=== PATIENT | female | born 1945 | race Caucasian/White ===

== ENCOUNTER 2018-03-30 01:58 | Inpatient (IN) ==
[2018-03-30] MEDS ORDERED: Ondansetron 4 MG/2 ML VIAL IVP ONE ×2 (05:56→15:33)
[2018-03-30] MEDS ORDERED: OXYCODONE Oral CONC 10 MG/0.5 ML ORAL.SYG SL PRN ×2 (08:27→17:45)
[2018-03-30] MEDS ORDERED: Naloxone 0.4 MG/ML INJ IVP PRN ×3 (08:27→17:45)
[2018-03-30] MEDS ORDERED: Ondansetron 4 MG/2 ML VIAL IVP PRN (08:27)
--- NOTE | 2018-03-30 08:29 | Orthopedic Consult Note ---
Date of Encounter: 03/30/18 Time of Encounter: 08:27 History of Present Illness HPI: Ms. Hall is a 72 year old female Patient seen this morning history of multiple medical issues no significant status post lower lobe lobectomy. Patient with a injury to the right hip. Patient seen and [facility] ER transferred for treatment. Physical exam Patient resting comfortably Right lower extremity Decreased motion secondary to pain Neurovascular intact X-ray and CT show nondisplaced femoral neck fracture, recommendation would be right hip pinning. Patient will require anesthetic clearance. Past Med Surg Social Fam HX - Past Medical History Medical history: arthritis, asthma, COPD, GERD, glaucoma, hyperlipidemia, hypertension, osteoporosis, thyroid disease, TIA Psychiatric history: no psych history, anxiety, depression, panic disorder - Past Surgical History Additional surgical history: thyroid lobectomy, breast lumpectomy - Social History Smoking Status: Former smoker Smokeless Tobacco Status: No Alcohol use: none Drug use: none - Family History Daughter Adopted: [place]: Niya Family Member Ethnicity: Non- Living Status: Still Living Hx Family Cardiac Disorders: Yes (HTN) Hx Family Respiratory Disorders: Yes Hx Family Cancer: No Hx Family GI Disorders: Yes (GERD) Hx Family Endocrine Disorder: Yes (DM) Hx Family Neuromuscular Disorders: No Hx Family Neurologic Disorders: Yes (Narcolepsy) Hx Family HEENT Disorders: Yes (Glases) Hx Family Autoimmune Disorders: No Medications and Allergies Albuterol Sulfate [Proair Hfa] 1 aerosol IH Q4H PRN 09/19/15 [History] Aspirin 81 mg PO DAILY 09/19/15 [History] Atorvastatin [Lipitor] 10 mg PO HS 09/19/15 [History] Budesonide/Formoterol 160/4.5 [Symbicort 160/4.5] 1 puff IH BIDR 09/19/15 [History] Calcium Carbonate/Vitamin D3 [Oyster Shell Calcium + D Cplt] 2 tab PO BID 0 09/19/15 [History] FLUoxetine HCl [PROzac] 20 mg PO DAILY 09/19/15 [History] Ipratropium/Albuterol Neb [Duoneb] 3 ml IH Q4HR PRN 09/19/15 [History] Ipratropium/Albuterol Sulfate [Combivent Respimat Inhal [place]] 4 gm IH Q4H PRN 09/19/15 [History] Montelukast [Singulair] 10 mg PO HS 09/19/15 [History] Multivitamin with Minerals [Totalday Multiple] 1 tab PO DAILY 09/19/15 [History] Nabumetone 750 mg PO BID PRN 09/19/15 [History] Naproxen [Naprosyn] 500 mg PO BID PRN 09/19/15 [History] Omeprazole [PriLOSEC] 20 mg PO DAILY 09/19/15 [History] Ondansetron [Zuplenz] 4 mg PO Q6H PRN 09/19/15 [History] Oxygen 3.5 l IH CONT 09/19/15 [History] Saliva Stimulant [Biotene Moisturizing Rinse] 100 spray ORAL RINSE Q4H PRN 09/19/15 [History] Theophylline Anhydrous [Theodur] 200 mg PO DAILY 09/19/15 [History] Allergy/AdvReac Type Severity Reaction Status Date / Time bupropion [From Wellbutrin] Allergy Hives Verified 08/28/15 14:44 codeine Allergy Nausea Verified 11/30/14 09:08 Opioids - Morphine Analogues Allergy Nausea Verified 08/28/15 14:45 All Systems Reviewed: The remainder of the systems were reviewed and are negative Physical Exam - Constitutional Vitals: Temp Pulse Resp BP Pulse Ox 98.5 F 115 18 106/65 94 03/30/18 07:07 03/30/18 08:06 03/30/18 08:06 03/30/18 07:07 03/30/18 08:06 Results - Labs Labs: All other labs normal. Consult Discharge Plan - Plan Referrals: nAnie Elliott MD [Primary Care Provider] -
[2018-03-30] MEDS ORDERED: D5% in 0.45% NACL 1,000 ML IVC SCH (08:30)
[2018-03-30] MEDS ORDERED: Ketorolac 15 MG/ML VIAL IVP PRN (08:31)
[2018-03-30] MEDS ORDERED: Ipratropium/Albuterol Neb 3 ML IH PRN ×2 (08:34→17:45)
--- NOTE | 2018-03-30 08:46 | Internal Med History&Physical ---
Date of Encounter: 03/30/18 Time of Encounter: 07:30 Internal Medicine - H&P: HPI Chief complaint: Right hip pain Admitted From: Home Plans for Post Hospital Care: Home History of present illness: Ms. Hall is a 72 year old female present to [facility] emergency room for right hip pain after fall. Past medical history is significant for history of CVA, COPD, hyperlipidemia, hypertension, hyperthyroidism S/P thyroid nodule removal. Patient has COPD and on home oxygen all the time at 3.5 L. Patient was trapped by oxygen tube and fell at around 8pm yesterday. Denies loss of consciousness or head injury. Patient has right hip pain. Patient was sent to [facility] emergency room and was found right femoral neck fracture. Orthopedic consult of our hospital was called and patient was transferred to our hospital for further management. Patient denies chest pain. Patient has chronic shortness of breath which is about the same with her baseline. Patient also has baseline tachycardia with heart rate at 104-110 level at home. Patient has mild desaturation in [facility] emergency room, probably due to pain medication use. Past Med Surg Social Fam HX - Past Medical History Medical history: arthritis, asthma, COPD, GERD, glaucoma, hyperlipidemia, hypertension, osteoporosis, thyroid disease, TIA Psychiatric history: no psych history, anxiety, depression, panic disorder - Past Surgical History Additional surgical history: thyroid lobectomy, breast lumpectomy - Social History Smoking Status: Former smoker Smokeless Tobacco Status: No Alcohol use: none Drug use: none - Family History Daughter Adopted: [place]: Niya Family Member Ethnicity: Non- Living Status: Still Living Hx Family Cardiac Disorders: Yes (HTN) Hx Family Respiratory Disorders: Yes Hx Family Cancer: No Hx Family GI Disorders: Yes (GERD) Hx Family Endocrine Disorder: Yes (DM) Hx Family Neuromuscular Disorders: No Hx Family Neurologic Disorders: Yes (Narcolepsy) Hx Family HEENT Disorders: Yes (Glases) Hx Family Autoimmune Disorders: No Internal Medicine - H&P: Meds Albuterol Sulfate [Proair Hfa] 1 aerosol IH Q4H PRN 09/19/15 [History] Aspirin 81 mg PO DAILY 09/19/15 [History] Atorvastatin [Lipitor] 10 mg PO HS 09/19/15 [History] Budesonide/Formoterol 160/4.5 [Symbicort 160/4.5] 1 puff IH BIDR 09/19/15 [History] Calcium Carbonate/Vitamin D3 [Oyster Shell Calcium + D Cplt] 2 tab PO BID 09/19/15 [History] FLUoxetine HCl [PROzac] 20 mg PO DAILY 09/19/15 [History] Ipratropium/Albuterol Neb [Duoneb] 3 ml IH Q4HR PRN 09/19/15 [History] Ipratropium/Albuterol Sulfate [Combivent Respimat Inhal [place]] 4 gm IH Q4H PRN 09/19/15 [History] Montelukast [Singulair] 10 mg PO HS 09/19/15 [History] Multivitamin with Minerals [Totalday Multiple] 1 tab PO DAILY 09/19/15 [History] Nabumetone 750 mg PO BID PRN 09/19/15 [History] Naproxen [Naprosyn] 500 mg PO BID PRN 09/19/15 [History] Omeprazole [PriLOSEC] 20 mg PO DAILY 09/19/15 [History] Ondansetron [Zuplenz] 4 mg PO Q6H PRN 09/19/15 [History] Oxygen 3.5 l IH CONT 09/19/15 [History] Saliva Stimulant [Biotene Moisturizing Rinse] 100 spray ORAL RINSE Q4H PRN 09/19/15 [History] Theophylline Anhydrous [Theodur] 200 mg PO DAILY 09/19/15 [History] Allergy/AdvReac Type Severity Reaction Status Date / Time bupropion [From Wellbutrin] Allergy Hives Verified 08/28/15 14:44 codeine Allergy Nausea Verified 11/30/14 09:08 Opioids - Morphine Analogues Allergy Nausea Verified 08/28/15 14:45 All Systems PM: A 10-system review of systems was performed and is negative for pertinent findings except as documented above in the HPI. - Constitutional Vitals: Temp Pulse Resp BP Pulse Ox 98.5 F 115 18 106/65 94 03/30/18 07:07 03/30/18 08:06 03/30/18 08:06 03/30/18 07:07 03/30/18 08:06 General appearance: Present: A&O X 3, no acute distress, answers questions appropriately Exam: Pt is AAO x 3, in NAD, thin built HEENT: NC/AT, PERRL Neck: Supple, no JVD, no LAD Lungs: CTA b/l, decreased breath sounds bilaterally, no wheezing Heart: S1S2, RRR, HR 110 Abd: Soft, nontender, BS present Ext: ROM wnl, no pedal edema Neuro: No focal deficit Internal Med - H&P Results - EKG Data -: EKG Interpreted by Myself EKG shows normal: sinus rhythm Rate: tachycardia - Assessment and plan (1) Fracture of femoral neck, right Current Visit: Yes Status: Acute Assessment and plan: Fracture due to mechanical fall. Orthopedic was counseled. - Continue pain medication for pain. - DVT prophylaxis - Keep nothing by mouth at this point, low rate IV fluid because of nothing by mouth - Pulmonology consult for preoperative evaluation as patient has end-stage COPD Qualifiers: Encounter type: initial encounter Fracture type: closed Qualified Code(s): S72.001A - Fracture of unspecified part of neck of right femur, initial encounter for closed fracture (2) COPD (chronic obstructive pulmonary disease) Current Visit: Yes Status: Acute Assessment and plan: No wheezing. No signs of acute exacerbation. - DuoNeb when necessary, continue home medication Symbicort and Singulair - Continue oxygen supportive treatment - Closely monitor patient with pulse oximetry as patient may need narcotic for pain. Qualifiers: COPD type: emphysema Emphysema type: unspecified Qualified Code(s): J43.9 - Emphysema, unspecified (3) Hypertension Current Visit: Yes Status: Acute Assessment and plan: BP is not high, will hold home medication at this point. Closely monitor BP. Qualifiers: Hypertension type: essential hypertension Qualified Code(s): I10 - Essential (primary) hypertension (4) DVT prophylaxis Current Visit: Yes Status: Acute Assessment and plan: EPCDs and subcutaneous heparin - Time Spent With Patient Total time spent is greater than 50% in coordination of care (as documented) at patient's floor/unit and/or counseling patient: 40 min Greater than 35 minutes
--- NOTE | 2018-03-30 08:59 | Pulmonology Consult Note ---
<BaljitHari S - Last Filed: 03/30/18 11:32> Date of Encounter: 03/30/18 Time of Encounter: 08:59 Assessment and Plan (1) Preop pulmonary/respiratory exam Current Visit: Yes Status: Acute Pt has end stage COPD on home oxygen at all times She has right femoral neck fx as seen on CT - pt is to go to surgery today with Dr Penn This is an emergent surgery, however, pt has underlying and extensive lung disease and is an extremely high risk pt for postop complications - her COPD is NOT in acute exacerbation - this is not an intrathoracic procedure, head/neck or cardiac procedure - length of intubation if longer than three hours will be detrimental - pt to have spinal anesthesia ECHO in 2014 - LVEF 55-60%. - Normal left ventricular size and systolic function. - mild diastolic dysfunction of the left ventricle. - No pulmonary hypertension. PFT's in 2016 - Spirometry: Very severe obstructive ventilatory impairment FEV1 0.47, 20% predicted - Lung volumes: SVC is reduced - Flow volume loop: Obstructive Patient has poor functional status, low BMI, decreased activity and extensive lung disease - explained to pt that the risk of respiratory failure, , COPD exacerbation is high - she is at medical optimization at this point Plan: - risks and benefits are explained to the pt, including the risk of not being able to get off intubation - the benefits of completing this procedure outweigh the risks of surgery - medical optimization - continue symbicort and tang palomo (2) Fracture of femoral neck, right Current Visit: Yes Status: Acute Fx secondary to mechanical fall over oxygen tank CT scan showed right femoral neck fx Pt to go for sx today with Dr Penn Plan: - NPO currently - orthopedic sx consulted - DVT prophylaxis as per primary - IVF and pain control as per primary Qualifiers: Encounter type: initial encounter Fracture type: closed Qualified Code(s): S72.001A - Fracture of unspecified part of neck of right femur, initial encounter for closed fracture (3) COPD (chronic obstructive pulmonary disease) Current Visit: Yes Status: Acute NOT in acute exacerbation - josiah hernandez, symbicort Qualifiers: COPD type: emphysema Emphysema type: unspecified Qualified Code(s): J43.9 - Emphysema, unspecified (4) Chronic respiratory failure Current Visit: No Status: Chronic Pt on 3.5 L home oxygen at baseline. Qualifiers: Respiratory failure complication: hypoxia Qualified Code(s): J96.11 - Chronic respiratory failure with hypoxia History of Present Illness Consult date: 03/30/18 Requesting physician: Darnell Motta Reason for consult: COPD, other (surgery clearance) Chief complaint: fell over my oxygen tank History of present illness: Ms Hall is a 72yo female with PMH COPD on home oxygen, GERD, glaucoma, HTN, HLD, thyroid dz, TIA, and arthrtiis. She presented from [facility] ER this morning with the cc of a fall. She states she tripped over her oxygen tank. She is currently using 3.5L of home oxygen and fell around 8pm yesterday. She denies any LOC or head trauma but she did hurt her back/ribs/leg. She was found to have right femoral neck fracture. Currently she has c/o pain in her right leg. It is an achy pain. No B&B dysfxn, no numbness or tingling. No loss of sensation. The pt has end stage COPD. She uses home oxygen at all times. She is SOB at rest and with any activity. She has not had ay increase or change in her sputum produ ction recently. Her SOB is around baseline. She was a [facility] smoker and has been quit for around 10 yrs, used to smoke 2-2.5 PPD. She is retired. No exposure to environmental hazards. Past Med Surg Social Fam HX - Past Medical History Medical history: arthritis, asthma, COPD, GERD, glaucoma, hyperlipidemia, hypertension, osteoporosis, thyroid disease, TIA Psychiatric history: no psych history, anxiety, depression, panic disorder - Past Surgical History Additional surgical history: thyroid lobectomy, breast lumpectomy - Social History Smoking Status: Former smoker Smokeless Tobacco Status: No Alcohol use: none Drug use: none - Family History Daughter Adopted: [place]: Niya Family Member Ethnicity: Non- Living Status: Still Living Hx Family Cardiac Disorders: Yes (HTN) Hx Family Respiratory Disorders: Yes Hx Family Cancer: No Hx Family GI Disorders: Yes (GERD) Hx Family Endocrine Disorder: Yes (DM) Hx Family Neuromuscular Disorders: No Hx Family Neurologic Disorders: Yes (Narcolepsy) Hx Family HEENT Disorders: Yes (Glases) Hx Family Autoimmune Disorders: No Medications and Allergies Albuterol Sulfate [Proair Hfa] 1 aerosol IH Q4H PRN 09/19/15 [History] Aspirin 81 mg PO DAILY 09/19/15 [History] Atorvastatin [Lipitor] 10 mg PO HS 09/19/15 [History] Budesonide/Formoterol 160/4.5 [Symbicort 160/4.5] 1 puff IH BIDR 09/19/15 [Histo ry] Calcium Carbonate/Vitamin D3 [Oyster Shell Calcium + D Cplt] 2 tab PO BID 09/19/15 [History] FLUoxetine HCl [PROzac] 20 mg PO DAILY 09/19/15 [History] Ipratropium/Albuterol Neb [Duoneb] 3 ml IH Q4HR PRN 09/19/15 [History] Ipratropium/Albuterol Sulfate [Combivent Respimat Inhal [place]] 4 gm IH Q4H PRN 09/19/15 [History] Montelukast [Singulair] 10 mg PO HS 09/19/15 [History] Multivitamin with Minerals [Totalday Multiple] 1 tab PO DAILY 09/19/15 [History] Nabumetone 750 mg PO BID PRN 09/19/15 [History] Naproxen [Naprosyn] 500 mg PO BID PRN 09/19/15 [History] Omeprazole [PriLOSEC] 20 mg PO DAILY 09/19/15 [History] Ondansetron [Zuplenz] 4 mg PO Q6H PRN 09/19/15 [History] Oxygen 3.5 l IH CONT 09/19/15 [History] Saliva Stimulant [Biotene Moisturizing Rinse] 100 spray ORAL RINSE Q4H PRN 09/19/15 [History] Theophylline Anhydrous [Theodur] 200 mg PO DAILY 09/19/15 [History] Allergy/AdvReac Type Severity Reaction Status Date / Time bupropion [From Wellbutrin] Allergy Hives Verified 08/28/15 14:44 codeine Allergy Nausea Verified 11/30/14 09:08 Opioids - Morphine Analogues Allergy Nausea Verified 08/28/15 14:45 All Systems: The remainder of the systems were reviewed and are negative - Constitutional Constitutional: no chills, no fever(s), no night sweats - EENT Nose, mouth and throat: no abnormal hearing, no dizziness - Cardiovascular Cardiovascular: dyspnea, dyspnea on exertion, no chest pain at rest, no chest pain with activity, no irregular heart rhythm, no palpitations - Respiratory Respiratory: cough, dyspnea, dyspnea on exertion, wheezing, no hemoptysis, no excessive phlegm production, no change in phlegm color - Gastrointestinal Gastrointestinal: no abdominal pain, no diarrhea, no melena, no nausea - Musculoskeletal Musculoskeletal: arthralgias, back pain, muscle weakness, myalgias, no weakness - Hematologic/Lymphatic Hematologic/Lymphatic: no easy bleeding, no easy bruising Physical Examination Vital Signs: Vital Signs, Last 4 Hours Temp Pulse Resp BP Pulse Ox 03/30/18 08:06 115 18 94 03/30/18 07:07 98.5 F 122 22 106/65 93 03/30/18 06:43 98.5 F 122 23 106/65 86 General appearance: no acute distress, alert Eyes: nonicteric ENT: oropharynx moist Mallampati (class): 2 Neck: supple Effort: very labored Inspection: normal Auscultation: bilateral: diminished breath sounds, wheezes Cardiovascular: other (tacycardia) Gastrointestinal: normoactive bowel sounds, soft, non-tender, non-distended Integumentary: normal Extremities: no cyanosis, no edema normal mental status, non-focal exam mood appropriate, affect normal Results - Laboratory Findings CBC and BMP: 03/30/18 08:43 03/30/18 08:43 - Clinical Findings Intake & Output: Intake & Output 03/29/18 03/30/18 03/30/18 23:59 07:59 15:59 Weight 48.6 kg Consult Discharge Plan - Plan Referrals: Annie Elliott MD [Primary Care Provider] - <Jose Alvarado - Last Filed: 03/30/18 11:48> Date of Encounter: 03/30/18 All Systems: The remainder of the systems were reviewed and are negative Physical Examination Vital Signs: Vital Signs, Last 4 Hours Temp Pulse Resp BP Pulse Ox 03/30/18 11:16 99.5 F 112 20 127/74 97 03/30/18 08:06 115 18 94 Results - Laboratory Findings CBC and BMP: 03/30/18 08:43 03/30/18 08:43 PT/INR, D-dimer PT 12.0 Seconds (9.4-12.1) 12/05/18 08:43 Abnormal lab findings: Abnormal lab results WBC 11.4 K/mcL (4.3-11.1) H 03/30/18 08:43 RBC 3.33 M/mcL (3.82-4.97) L 03/30/18 08:43 Hgb 10.0 g/dL (11.5-15.4) L 03/30/18 08:43 Hct 31.0 % (35.3-44.9) L 03/30/18 08:43 MPV 9.2 fL (9.4-12.4) L 03/30/18 08:43 Neutrophils # 10.3 K/mcL (1.6-8.9) H 03/30/18 08:43 Lymphocytes # 0.3 K/mcL (0.6-4.6) L 03/30/18 08:43 Carbon Dioxide 33 mEq/L (23-29) H 03/30/18 08:43 Glucose 141 mg/dL (70-105) H 03/30/18 08:43 Calcium 8.5 mg/dL (8.6-10.3) L 03/30/18 08:43 Serum Total Protein 5.9 g/dL (6.4-8.9) L 03/30/18 08:43 Globulin 2.3 g/dL (2.4-3.5) L 03/30/18 08:43 - Clinical Findings Intake & Output: Intake & Output 03/29/18 03/30/18 03/30/18 23:59 07:59 15:59 Intake Total 0 / 0 Output Total 400 / 400 Balance -400 / -400 Weight 48.6 kg - Attending Attestation I examined this patient and my medical decision-making was reviewed with the Resident Physician. I agree with the documented findings, disposition and treatment plan as described except to the extent set forth below. We ind ependently had [id number] contact with the patient Patient seen and examined at bedside Labs, radiology, chart personally reviewed. Impression: Preoperative pulmonary evaluation Chronic hypoxic respiratory failure Advanced COPD with FEV1 less than 20% Right femur fracture Recs: Preoperative Pulmonary Risk Assessment and Optimization Operation Directly Involves the Diaphgram: No Procedure Related Risk: Low (slightly increased because of emergent nature) Overall Risk of Patient:: High Post-operative complications including but not limited to pneumonia, respiratory failure requiring ventilation, and prolonged intubation requiring hospitalization. Specific Perioperative Recommendations: Patient currently optimized from pulmonary standpoint for this procedure which is to be done without general anesthesia General Perioperative Pulmonary Recommendations: 1. Delay or cancel planned surgery for acute respiratory infection or exacerbation of pulmonary disease 2. Spinal or epidural anesthesia is favored over general anesthesia for patients who are at high risk for postoperative pulmonary complications 3. Optimize pain control while limiting use of sedatives and judicious use of narcotics. 4. Encourage early ambulation and use of incentive spirometry 5. Administration of bronchodilators 6. VTE prophylaxis including mechanical or chemical prophylaxis as dictated by post operative bleeding risk.
[2018-03-30 09:08] LABS: Basophils % 0.2 %; Eosinophils % 0.3 %; Immature Granulocytes % 0.3 % (0-4); Lymphocytes # 0.3 K/mcL (0.6-4.6); Lymphocytes % 2.7 %; Mean Corpuscular HGB Conc 32.3 g/dL (31.6-35.5); Mean Corpuscular Volume 93.1 fL (83.0-100.0); Mean Platelet Volume 9.2 fL (9.4-12.4); Monocytes # 0.6 K/mcL (0.0-1.3); Monocytes % 5.6 %; Neutrophils # 10.3 K/mcL (1.6-8.9); Platelet Count 214 K/mcL (140-400); Red Blood Count 3.33 M/mcL (3.82-4.97); Red Cell Distribution Width 12.5 % (11.5-14.5); Segmented Neutrophils % 90.9 %
[2018-03-30 09:16] LABS: Alanine Aminotransferase 18 Units/L (7-52); Albumin 3.6 g/dL (3.5-5.7); Albumin/Globulin Ratio 1.6 (1.1-2.2); Alkaline Phosphatase 43 Units/L (34-104); Aspartate Amino Transferase 19 Units/L (13-39); BUN/Creatinine Ratio 22 (6-26); Bilirubin,Total 0.3 mg/dL (0.3-1.0); Blood Urea Nitrogen 14 mg/dL (8-23); Calcium 8.5 mg/dL (8.6-10.3); Carbon Dioxide 33 mEq/L (23-29); Chloride 101 mEq/L (98-107); Globulin 2.3 g/dL (2.4-3.5); Glucose 141 mg/dL (70-105); INR 1.1; Osmolality,Calculated 289 (280-300); Potassium 3.6 mEq/L (3.5-5.1); Sodium 138 mEq/L (136-145); Total Protein 5.9 g/dL (6.4-8.9); eGFR For Non-African Americans > 60 (> 60)
[2018-03-30 09:28] LABS: Thyroid Stimulating Hormone 0.619 mcIU/mL (0.340-5.600)
--- NOTE | 2018-03-30 09:28 | Anesthesia Evaluation PreOp ---
Date of Encounter: 03/30/18 Time of Encounter: 09:26 - Past History Planned Operation: Right hip pinning Cardiac History: Hyperlipidemia, Arrhythmia (sinus tach since admission; SR per EKG ) Pulmonary History: Former smoker, COPD (end-stage COPD requiring 3.5 L all the time; breathing at baseline) [employer]OVER History: CVA (5-6 years ago; no neurological deficits involving the upper and lower extremities; residual facial symptoms), Other (degenerative disk disease) Other Medical History: GERD Anesthesia History: No Prior Anesthetic Complications, Past Anesthesia (spinal for childbirth; thyroid lobectomy, breast lumpectomy) Alcohol Use: none Drug use: none Medications and Allergies Albuterol Sulfate [Proair Hfa] 1 aerosol IH Q4H PRN 09/19/15 [History] Aspirin 81 mg PO DAILY 09/19/15 [History] Atorvastatin [Lipitor] 10 mg PO HS 09/19/15 [History] Budesonide/Formoterol 160/4.5 [Symbicort 160/4.5] 1 puff IH BIDR 09/19/15 [History] Calcium Carbonate/Vitamin D3 [Oyster Shell Calcium + D Cplt] 2 tab PO BID 09/19/15 [History] FLUoxetine HCl [PROzac] 20 mg PO DAILY 09/19/15 [History] Ipratropium/Albuterol Neb [Duoneb] 3 ml IH Q4HR PRN 09/19/15 [History] Ipratropium/Albuterol Sulfate [Combivent Respimat Inhal [place]] 4 gm IH Q4H PRN 09/19/15 [History] Montelukast [Singulair] 10 mg PO HS 09/19/15 [History] Multivitamin with Minerals [Totalday Multiple] 1 tab PO DAILY 09/19/15 [History] Nabumetone 750 mg PO BID PRN 09/19/15 [History] Naproxen [Naprosyn] 500 mg PO BID PRN 09/19/15 [History] Omeprazole [PriLOSEC] 20 mg PO DAILY 09/19/15 [History] Ondansetron [Zuplenz] 4 mg PO Q6H PRN 09/19/15 [History] Oxygen 3.5 l IH CONT 09/19/15 [History] Saliva Stimulant [Biotene Moisturizing Rinse] 100 spray ORAL RINSE Q4H PRN 09/19/15 [History] Theophylline Anhydrous [Theodur] 200 mg PO DAILY 09/19/15 [History] Allergy/AdvReac Type Severity Reaction Status Date / Time bupropion [From Wellbutrin] Allergy Hives Verified 08/28/15 14:44 codeine Allergy Nausea Verified 11/30/14 09:08 Opioids - Morphine Analogues Allergy Nausea Verified 08/28/15 14:45 - Meds/Allergy Pre-op Review Medications Reviewed: Yes Allergies Reviewed: Yes Beta Blockers on Current Med List: No Anesthesia Results - Labs 03/30/18 08:43 03/30/18 08:43 - Imaging EKG: report reviewed, image reviewed (SINUS RHYTHM POOR R WAVE PROGRESSION) Additional studies: 2014 TTE: Impressions: LVEF 55-60%. Normal left ventricular size and systolic function. There is evidence of mild diastolic dysfunction of the left ventricle. Normal left atrial size. Normal right atrial size. Normal right ventricular size and function. No significant valvular dysfunction. Estimated RVSP was 13 mmHg. No pulmonary hypertension. The IVC is not dilated. Anesthesia Exam Last Vital Signs Temp 98.5 F 03/30/18 07:07 Pulse 115 03/30/18 08:06 Resp 18 03/30/18 08:06 BP 106/65 03/30/18 07:07 Pulse Ox 94 03/30/18 08:06 Weight: 49 kg NPO (# of Hours): > 8 hrs - HEENT Pupil (Motor): Pupils equal, EOMI Mallampati: II Teeth: Missing Denture Type: Upper: Complete Oral Opening: Greater than 3 - V[employer]ISH REMOVER LOC: Oriented - Cardiac Rhythm: Regular Murmur: None - Pulmonary Breath Sounds: bilateral Clear Respiratory Effort: Symmetrical Anesthesia Assess/Plan ASA Score: 4 Level of consciousness: Cooperative Anesthetic Plan: MAC, Precautions (may avoid intra-thecal duramorph due to potential for respiratory depression with intra-thecal duramorph; however, very low dose duramorph is reasonable), Spinal Monitoring Plan: Standard Monitors Recovery Plan: PACU
[2018-03-30] MEDS ORDERED: Budesonide/Formoterol 160/4.5 1 PUFF INH IH SCH (10:00)
--- NOTE | 2018-03-30 10:04 | Event Note ---
Addendum entered and electronically signed by RUSS Paris 03/30/18 13:06: Spoke to violin teacher that surgery is planned for this afternoon and agreed to finish consult at that time. Later per note: length of intubation if longer than three hours will be detrimental - pt to have spinal anesthesia Patient has poor functional status, low BMI, decreased activity and extensive lung disease - explained to pt that the risk of respiratory failure, , COPD exacerbation is high - she is at medical optimization at this point - risks and benefits are explained to the pt, including the risk of not being able to get off intubation - the benefits of completing this procedure outweigh the risks of surgery Original Note: Date of Encounter: 03/30/18 Time of Encounter: 09:35 Discussed with patient the planned procedure today by Dr. Penn for Right hip pinning. Reviewed the procedure as well as r/b/a with the patient. All questions were answered and she expressed understanding. Consent was obtained and placed in patient's chart. Remain NPO until surgery. Pending medical clearance by pulmonology.
[2018-03-30] MEDS ORDERED: *HR* Propofol 200 MG/20 ML VIAL IVP ONE (14:59)
--- NOTE | 2018-03-30 15:17 | Anesthesia Procedures ---
Date of Encounter: 03/30/18 Time of Encounter: 14:30 Procedures: Anesthesia - Epidural/Spinal Patient ID/Chart reviewed: Yes Patient examined: Yes Supplemental Oxygen: Nasal Cannula (2) Sedation: Fentanyl (mcg): 50 Patient position: left lateral decubitus Local Anesthetic: Lidocaine 1% (2cc) Interspace Used: L2-L3 Loss of Resistance (RYANN): No Blood: No CSF: Yes Paresthesia: No Spinal Needle Gauge: 24 Spinal Dose: 10 mg isobaric marcaine/duramorph 0.1mg Vitals + FHT's: Vital Signs/O2 Sat/Glucose, Most Current Pulse BP Pulse Ox 03/30/18 14:50 102 110/62 98 03/30/18 11:58 97
[2018-03-30] MEDS ORDERED: *HR* PHENYLEPHRINE 1,000 MCG/10 ML SYRINGE IVP ONE (15:21)
[2018-03-30] MEDS ORDERED: ceFAZolin 2,000 MG in Water for inj. (sterile) 20 ML 10 ML IVP ONE (15:27)
[2018-03-30] MEDS ORDERED: *HR* Labetalol 20 MG/4 ML SYRINGE IVP PRN (15:33)
[2018-03-30] MEDS ORDERED: *HR* FentaNYL (PF) 100 MCG/2 ML VIAL IVP PRN (15:33)
[2018-03-30] MEDS ORDERED: Lidocaine -MPF 1% 5 ML AMPUL ONE (15:36)
--- NOTE | 2018-03-30 15:39 | Orthopedic Operative Note ---
Date of procedure: 03/30/18 Pre-op diagnosis: Nondisplaced right femoral neck fracture Post-op diagnosis: same Procedure: Procedure: Right hip open pinning Estimated blood loss: 5 cc Hardware:Synthes 2 7.3 cannulated metal screws Operative procedure: The patient was brought to the operating room and placed on the operating room table. After general anesthesia was administered the well leg was place in the well leg stacy and the operative leg was placed in the fracture leg stacy. All pressure points were padded appropriately. The operative extremity was prepped and draped in the sterile surgical fashion patient received IV antibiotic prior to skin incision. Using fluoroscopic assistance a guidepin was placed through a small stab incision on the lateral aspect of the femur. Placed through the lateral femur across the fracture site into the femoral head addition of the guidepin was found to be acceptable in AP and lateral planes. A second guidepin was placed in an appropriate position and confirmed with fluoroscopy. Two 7.3 cannulated screws were placed over the guidepins, and their position was confirmed with fluoroscopy as well. Hardware as well as fracture site was well reduced and well positioned. Wound was irrigated and closed with a 2-0 Monocryl suture The patient was placed in a sterile dressing The patient was extubated and transferred to the recovery room in stable condition. Anesthesia: spinal Surgeon: Oswald Penn Was there an early childhood assistant present: No Estimated blood loss (cc): 5 Condition: stable Disposition: PACU
[2018-03-30] MEDS ORDERED: KETAMINE HCL 50 MG/ML SYRINGE IV ONE (15:52)
[2018-03-30] MEDS ORDERED: *HR* FentaNYL (PF) 100 MCG/2 ML VIAL ONE (15:52)
[2018-03-30] MEDS ORDERED: Ringers Solution, Lactated 1,000 ML ONE (16:12)
--- NOTE | 2018-03-30 16:25 | Anesthesia Evaluation Post Op ---
Date of Encounter: 03/30/18 Time of Encounter: 16:24 - Vital Signs Vital Signs: Last Vital Signs Temp 97.6 F 03/30/18 15:44 Pulse 101 03/30/18 16:04 Resp 16 03/30/18 16:04 BP 120/61 03/30/18 16:04 Pulse Ox 97 03/30/18 16:04 - Lungs Lungs: Clear Ascult./Percussion - Airway Airway: Non-obstructed - Cardiovascular Regular Rate - Mental Status Mental Status: Alert & Oriented, Answers Appropriately - Pain Pain Scale: 1 - Nausea Vomiting Nausea Vomiting: Not Present - Hydration Hydration: NPO - Discharge PostOp Status: Transfer Patient to floor
[2018-03-30 16:30] LABS: Hematocrit 31.7 % (35.3-44.9)
[2018-03-30] MEDS ORDERED: *HR* Heparin 5,000 UNIT/ML VIAL SQ SCH (18:00)
[2018-03-30] MEDS: *HR* Heparin 5,000 UNIT/ML VIAL SQ SCH (18:16)
[2018-03-30] MEDS: Ondansetron 4 MG/2 ML VIAL IVP PRN (20:55)
[2018-03-30] MEDS: Budesonide/Formoterol 160/4.5 1 PUFF INH IH SCH (21:05)
[2018-03-30] MEDS ORDERED: ALBUTEROL IH PRN (22:22)
[2018-03-30] MEDS ORDERED: IPRATROPIUM IH PRN (22:22)
[2018-03-30 22:56] LABS: ABG Base Excess 9 mEq/L (-2 to 3); ABG HCO3 37 mEq/L (21-27); ABG Oxygen Saturation 81 % (95-98); ABG PCO2 69 mmHg (35-45); ABG PH 7.34 pH Units (7.32-7.45); ABG PO2 50 mmHg (85-104); ABG TCO2 39 mEq/L (20-26)
[2018-03-30] MEDS: D5% in 0.45% NACL 1,000 ML IVC SCH (23:32)
[2018-03-31] MEDS: *HR* Heparin 5,000 UNIT/ML VIAL SQ SCH ×2 (05:15→17:20)
--- NOTE | 2018-03-31 06:52 | Pulmonology Progress Note ---
Date of Encounter: 03/31/18 Time of Encounter: 06:52 Assessment and Plan (1) Acute and chronic respiratory failure with hypoxia Current Visit: Yes Status: Acute Patient currently requiring BiPAP to keep oxygen saturation in the 90s. Treatment obtaining a chest x-ray As for hydrostatic pulmonary edema with the continuous infusion of crystalloid and would recommend discontinuation of these No clear evidence of COPD exacerbation she is extremely high risk for development of pneumonia Recommend obtaining chest x-ray (portable) now Out of bed to chair today we will encourage incentive spirometry once off BiPAP Recommend patient being off BiPAP for approximately 2 hours prior to advancement of diet (2) COPD (chronic obstructive pulmonary disease) Current Visit: Yes Status: Acute Continue schedule bronchodilators and Symbicort no indication for systemic glucocorticoids at this time but would have a low threshold for initiating Qualifiers: COPD type: emphysema Emphysema type: unspecified Qualified Code(s): J43.9 - Emphysema, unspecified (3) DVT prophylaxis Current Visit: Yes Status: Acute She is on heparin and SCDs Pulmonary will continue to follow closely Subjective Principal diagnosis: Hip Fracture Interval history: Patient did well through surgery without any significant complication unfortunately overnight had an episode of vomiting and oxygen desaturation leading to use of BiPAP this is improved her saturation. She denies complaint today says her breathing felt at baseline and she is no longer nauseated Objective PUL Vital signs: Last Vital Signs Temp 98.1 F 03/31/18 04:12 Pulse 102 03/31/18 04:12 Resp 14 03/31/18 04:12 BP 106/61 03/31/18 04:12 Pulse Ox 88 03/31/18 04:12 General appearance: no acute distress Eyes: nonicteric Neck: supple Auscultation: bilateral: diminished breath sounds Cardiovascular: regular rate and rhythm Gastrointestinal: hypoactive bowel sounds, soft, non-tender Integumentary: normal Extremities: pink and warm, pulses normal normal mental status, non-focal exam mood appropriate Results - Laboratory Findings CBC and BMP: 03/30/18 16:08 03/30/18 08:43 ABG ABG pH 7.34 pH Units (7.32-7.45) 03/30/18 22:54 ABG pCO2 69 mmHg (35-45) H 03/30/18 22:54 ABG pO2 50 mmHg (85-104) L* 03/30/18 22:54 ABG O2 Saturation 81 % (95-98) L 03/30/18 22:54 PT/INR, D-dimer PT 12.0 Seconds (9.4-12.1) 03/30/18 08:43 Abnormal lab findings: Abnormal lab results WBC 11.4 K/mcL (4.3-11.1) H 03/30/18 08:43 RBC 3.33 M/mcL (3.82-4.97) L 03/30/18 08:43 Hgb 10.0 g/dL (11.5-15.4) L 03/30/18 16:08 Hct 31.7 % (35.3-44.9) L 03/30/18 16:08 MPV 9.2 fL (9.4-12.4) L 03/30/18 08:43 Neutrophils # 10.3 K/mcL (1.6-8.9) H 03/30/18 08:43 Lymphocytes # 0.3 K/mcL (0.6-4.6) L 03/30/18 08:43 ABG pCO2 69 mmHg (35-45) H 03/30/18 22:54 ABG pO2 50 mmHg (85-104) L* 03/30/18 22:54 ABG HCO3 37 mEq/L (21-27) H 03/30/18 22:54 ABG Total CO2 39 mEq/L (20-26) H 03/30/18 22:54 ABG O2 Saturation 81 % (95-98) L 03/30/18 22:54 ABG Base Excess 9 mEq/L (-2 to 3) H 03/30/18 22:54 Carbon Dioxide 33 mEq/L (23-29) H 03/30/18 08:43 Glucose 141 mg/dL (70-105) H 03/30/18 08:43 Calcium 8.5 mg/dL (8.6-10.3) L 03/30/18 08:43 Serum Total Protein 5.9 g/dL (6.4-8.9) L 03/30/18 08:43 Globulin 2.3 g/dL (2.4-3.5) L 03/30/18 08:43 - Clinical Findings Intake & Output: Intake & Output 03/30/18 03/30/18 03/31/18 15:59 23:59 07:59 Intake Total 100 / 100 Output Total 402 / 402 200 / 200 225 / 225 Balance -392 / -392 -200 / -200 -125 / -125 Weight 48.1 kg - VTE Documentation of Mechanical Device: Venous foot pump, device Consult Discharge Plan - Plan Referrals: Annie Elliott MD [Primary Care Provider] -
[2018-03-31] MEDS: D5% in 0.45% NACL 1,000 ML IVC SCH (07:08)
--- NOTE | 2018-03-31 07:44 | Internal Med Progress Note ---
Hospitalist Progress Note - Encounter Date of Encounter: 03/31/18 Time of Encounter: 11:00 - Subjective Interval History: Patient presents with acute right femoral neck fracture secondary to mechanical fall postop day 1 right hip open pending Patient overnight experienced acute on chronic hypoxic respiratory failure and had to be placed on BiPAP - Exam Vitals: Temp Pulse Resp BP Pulse Ox 98.1 F 102 14 106/61 88 03/31/18 04:12 03/31/18 04:12 03/31/18 04:12 03/31/18 04:12 03/31/18 04:12 Exam: Gen.: Nonacute distress, alert and oriented 3 ENT: Mucosal membranes moist Respiratory: Lungs are clear to auscultation bilaterally without any wheezing rhonchi or rales Cardiovascular: Normal S1 and S2 regular rate rhythm no murmurs rubs or gallops Abdomen: Soft, nontender and nondistended with positive bowel sounds Extremities: No lower extremity edema Skin: Normal color - Assessment and Plan (1) Acute and chronic respiratory failure with hypoxia Current Visit: Yes Status: Acute Assessment and Plan: Patient overnight experienced acute on chronic hypoxic respiratory failure and had to be placed on BiPAP Pulmonology following with recommendations to repeat chest x-ray Will wean patient back to baseline O2 supplementation as tolerates (2) Fracture of femoral neck, right Current Visit: Yes Status: Acute Assessment and Plan: Patient presents with acute right femoral neck fracture secondary to mechanical fall postop day 1 right hip open pending Orthopedics following and appreciate recommendations (3) COPD (chronic obstructive pulmonary disease) Current Visit: Yes Status: Acute Assessment and Plan: No wheezing. No signs of acute exacerbation. Continue scheduled DuoNeb's in addition to theophylline DVT Prophylaxis: EPCDs and subcutaneous heparin - Time Spent with Patient Total time spent is greater than 50% in coordination of care (as documented) at patient's floor/unit and/or counseling patient: Internal Medicine: Result - Labs CBC & Chem 7: 03/31/18 07:59 03/31/18 07:59 Labs: Short CBC 03/30/18 03/30/18 Range/Units 08:43 16:08 WBC 11.4 H (4.3-11.1) K/mcL Hgb 10.0 L 10.0 L (11.5-15.4) g/dL Hct 31.0 L 31.7 L (35.3-44.9) % Plt Count 214 (140-400) K/mcL Neutrophils # 10.3 H (1.6-8.9) K/mcL BMP 03/30/18 08:43 Sodium 138 Potassium 3.6 Chloride 101 Carbon Dioxide 33 H BUN 14 Creatinine 0.65 Glucose 141 H Calcium 8.5 L Liver Function 03/30/18 Range/Units 08:43 Total Bilirubin 0.3 (0.3-1.0) mg/dL AST 19 (13-39) Units/L ALT 18 (7-52) Units/L Alkaline Phosphatase 43 (34-104) Units/L Albumin 3.6 (3.5-5.7) g/dL - ABG Interpretation ABG results: ABG ABG pH 7.34 pH Units (7.32-7.45) 03/30/18 22:54 ABG pCO2 69 mmHg (35-45) H 03/30/18 22:54 ABG pO2 50 mmHg (85-104) L* 03/30/18 22:54 ABG O2 Saturation 81 % (95-98) L 03/30/18 22:54 PT/INR, D-dimer PT 12.0 Seconds (9.4-12.1) 03/30/18 08:43 - Impressions Impressions Fluoroscopy 03/30/18 00:00 IMPRESSION: Fluoroscopy was utilized for the purposes of percutaneous pinning of the right hip D/ / Jeramie Sweeney MD / Jeramie Sweeney MD Interpreting Provider: Jeramie Sweeney MD Hip X-Ray 03/30/18 00:00 IMPRESSION: Fluoroscopy was utilized for the purposes of percutaneous pinning of the right hip D/ / Jeramie Sweeney MD / Jeramie Sweeney MD Interpreting Provider: Jeramie Sweeney MD Chest X-Ray 03/30/18 08:30 IMPRESSION: 1. No active pulmonary disease. 2. COPD. D/ / Guevara Gutierrez MD / Guevara Gutierrez MD Interpreting Provider: Guevara Gutierrez MD Hip X-Ray 03/30/18 15:16 IMPRESSION: Expected postsurgical changes from internal fixation of a right femoral neck fracture with near anatomic alignment. D/ /30/2018 17:46:58 Iram Roth MD / sharyn Interpreting Provider: Iram Roth MD - VTE Documentation of Mechanical Device: Venous foot pump, device Consult Discharge Plan - Plan Referrals: Annie Elliott MD [Primary Care Provider] - (2) Fracture of femoral neck, right Qualifiers: Encounter type: initial encounter Fracture type: closed Qualified Code(s): S72.001A - Fracture of unspecified part of neck of right femur, initial encounte r for closed fracture (3) COPD (chronic obstructive pulmonary disease) Qualifiers: COPD type: emphysema Emphysema type: unspecified Qualified Code(s): J43.9 - Emphysema, unspecified
[2018-03-31] MEDS: Budesonide/Formoterol 160/4.5 1 PUFF INH IH SCH ×2 (08:26→19:49)
[2018-03-31 08:48] LABS: Basophils % 0.3 %; Eosinophils # 0.2 K/mcL (0.0-0.6); Eosinophils % 1.9 %; Hematocrit 30.3 % (35.3-44.9); Hemoglobin 9.6 g/dL (11.5-15.4); Immature Granulocytes % 0.2 % (0-4); Lymphocytes # 0.5 K/mcL (0.6-4.6); Lymphocytes % 4.6 %; Mean Corpuscular HGB Conc 31.7 g/dL (31.6-35.5); Mean Corpuscular Hemoglobin 29.7 pg (28.0-33.3); Mean Corpuscular Volume 93.8 fL (83.0-100.0); Mean Platelet Volume 9.7 fL (9.4-12.4); Monocytes # 0.9 K/mcL (0.0-1.3); Monocytes % 8.8 %; Neutrophils # 8.5 K/mcL (1.6-8.9); Platelet Count 192 K/mcL (140-400); Red Blood Count 3.23 M/mcL (3.82-4.97); Red Cell Distribution Width 12.6 % (11.5-14.5); Segmented Neutrophils % 84.2 %
[2018-03-31 09:07] LABS: BUN/Creatinine Ratio 28 (6-26); Blood Urea Nitrogen 17 mg/dL (8-23); Calcium 8.5 mg/dL (8.6-10.3); Carbon Dioxide 36 mEq/L (23-29); Chloride 96 mEq/L (98-107); Glucose 83 mg/dL (70-105); Osmolality,Calculated 283 (280-300); Potassium 3.4 mEq/L (3.5-5.1); Sodium 136 mEq/L (136-145); eGFR For Non-African Americans > 60 (> 60)
--- NOTE | 2018-03-31 09:48 | Electrocardiograph Report ---
[address] [place], [place] [address] Test Date: 2018-03-29 Pat Name: Meaghan Hall Department: 114 Room: [facility] Gender: F Csr Retail: MIRIAN : 1945 Requested By: Oswald Penn Order Number: [id number] Reading MD: Cristy Christensen Measurements Intervals [place] Rate: 111 P: 86 NH: 154 QRS: 75 QRSD: 81 T: 92 QT: 289 QTc: 355 Interpretive Statements SINUS TACHYCARDIA LOW QRS VOLTAGE IN PRECORDIAL LEADS NONSPECIFIC T-WAVE ABNORMALITY ABNORMAL RHYTHM ECG Electronically Signed On 03-31-2018 9:46:45 EST by Cristy Christensen
--- NOTE | 2018-03-31 10:07 | Orthopedics Progress Note ---
Date of Encounter: 03/31/18 Time of Encounter: 10:07 Subjective Principal diagnosis: Hip Fracture Interval history: Patient was seen this morning doing well without complaints. Afebrile vital signs stable. Operative extremity: Neurovascularly intact Dressing clean dry and intact Calves nontender Assessment and plan: Continue with postoperative care Objective Vital signs: Vital Signs Temp Pulse Resp BP Pulse Ox 03/31/18 04:12 98.1 F 102 14 106/61 88 03/31/18 03:49 14 100 03/30/18 23:38 98.0 F 108 14 120/68 80 03/30/18 23:01 14 94 03/30/18 21:15 18 92 03/30/18 21:05 99.4 F 111 18 105/66 100 03/30/18 17:45 98.1 F 106 16 106/67 100 03/30/18 17:15 98.2 F 100 16 108/68 98 03/30/18 16:45 98.0 F 104 16 131/83 93 03/30/18 16:14 99.0 F 102 15 113/60 97 03/30/18 16:04 101 16 120/61 97 03/30/18 15:54 103 15 112/57 98 03/30/18 15:44 97.6 F 99 18 106/57 92 03/30/18 15:10 109 15 89/60 98 03/30/18 14:50 102 110/62 98 03/30/18 11:58 97 03/30/18 11:16 99.5 F 112 20 127/74 97 Intake and Output 03/30/18 03/31/18 03/31/18 23:59 07:59 15:59 Intake Total 100 / 100 Output Total 200 / 200 225 / 225 Balance -200 / -200 -125 / -125 Intake: IV Fluids 100 / 100 Ancef 2,000 MG In 0.9 % Sodium 100 / 100 Chloride 100 ML @ 200 mls/hr IVPB Q8HR [facility] Rx#:[id number] Output: Urine Amount (Catheter) 200 / 200 Catheter 225 / 225 Other: Weight 48.1 kg Patient Weight 03/31/18 23:59 Weight 48.1 kg - Labs CBC & BMP: 03/31/18 07:59 03/31/18 07:59 Labs: Abnormal lab results RBC 3.23 M/mcL (3.82-4.97) L 03/31/18 07:59 Hgb 9.6 g/dL (11.5-15.4) L 03/31/18 07:59 Hct 30.3 % (35.3-44.9) L 03/31/18 07:59 Lymphocytes # 0.5 K/mcL (0.6-4.6) L 03/31/18 07:59 ABG pCO2 69 mmHg (35-45) H 03/30/18 22:54 ABG pO2 50 mmHg (85-104) L* 03/30/18 22:54 ABG HCO3 37 mEq/L (21-27) H 03/30/18 22:54 ABG Total CO2 39 mEq/L (20-26) H 03/30/18 22:54 ABG O2 Saturation 81 % (95-98) L 03/30/18 22:54 ABG Base Excess 9 mEq/L (-2 to 3) H 03/30/18 22:54 Potassium 3.4 mEq/L (3.5-5.1) L 03/31/18 07:59 Chloride 96 mEq/L (98-107) L 03/31/18 07:59 Carbon Dioxide 36 mEq/L (23-29) H 03/31/18 07:59 BUN/Creatinine Ratio 28 (6-26) H 03/31/18 07:59 Calcium 8.5 mg/dL (8.6-10.3) L 03/31/18 07:59 Serum Total Protein 5.9 g/dL (6.4-8.9) L 03/30/18 08:43 Globulin 2.3 g/dL (2.4-3.5) L 03/30/18 08:43 - VTE Documentation of Mechanical Device: Venous foot pump, device Consult Discharge Plan - Plan Referrals: Annie Elliott MD [Primary Care Provider] -
[2018-03-31] MEDS: Ketorolac 15 MG/ML VIAL IVP PRN (11:46)
[2018-03-31] MEDS: Ipratropium 1 PUFF INHALER IH SCH ×2 (19:49→23:22)
[2018-04-01] MEDS: Ketorolac 15 MG/ML VIAL IVP PRN (03:22)
[2018-04-01] MEDS: Ipratropium 1 PUFF INHALER IH SCH (04:32)
[2018-04-01 04:43] LABS: Basophils % 0.2 %; Eosinophils # 0.1 K/mcL (0.0-0.6); Eosinophils % 1.1 %; Hematocrit 28.8 % (35.3-44.9); Hemoglobin 9.4 g/dL (11.5-15.4); Immature Granulocytes % 0.4 % (0-4); Lymphocytes # 0.5 K/mcL (0.6-4.6); Mean Corpuscular HGB Conc 32.6 g/dL (31.6-35.5); Mean Platelet Volume 9.4 fL (9.4-12.4); Monocytes % 12.5 %; Neutrophils # 6.5 K/mcL (1.6-8.9); Platelet Count 174 K/mcL (140-400); Red Blood Count 3.13 M/mcL (3.82-4.97); Red Cell Distribution Width 12.4 % (11.5-14.5); Segmented Neutrophils % 79.8 %
[2018-04-01 05:06] LABS: Alanine Aminotransferase 11 Units/L (7-52); Albumin 3.3 g/dL (3.5-5.7); Albumin/Globulin Ratio 1.4 (1.1-2.2); Alkaline Phosphatase 45 Units/L (34-104); Aspartate Amino Transferase 24 Units/L (13-39); BUN/Creatinine Ratio 34 (6-26); Bilirubin,Total 0.3 mg/dL (0.3-1.0); Blood Urea Nitrogen 17 mg/dL (8-23); Calcium 8.4 mg/dL (8.6-10.3); Carbon Dioxide 33 mEq/L (23-29); Chloride 96 mEq/L (98-107); Globulin 2.4 g/dL (2.4-3.5); Glucose 100 mg/dL (70-105); Osmolality,Calculated 284 (280-300); Potassium 3.5 mEq/L (3.5-5.1); Sodium 136 mEq/L (136-145); Total Protein 5.7 g/dL (6.4-8.9); eGFR For Non-African Americans > 60 (> 60)
[2018-04-01] MEDS: *HR* Heparin 5,000 UNIT/ML VIAL SQ SCH ×2 (05:36→18:15)
--- NOTE | 2018-04-01 06:40 | Pulmonology Progress Note ---
Date of Encounter: 04/01/18 Time of Encounter: 06:40 Assessment and Plan (1) Acute and chronic respiratory failure with hypoxia Current Visit: Yes Status: Acute Patient currently requiring BiPAP to keep oxygen saturation in the 90s. I suspect this can be weaned off later this morning Some postoperative management including encouraging incentive spirometry out of bed to chair and early ambulation with PT OT once cleared from orthopedic standpoint (2) DVT prophylaxis Current Visit: Yes Status: Acute She is on heparin and SCDs Pulmonary will continue to follow closely (3) COPD exacerbation Current Visit: Yes Status: Acute Appears to have mild COPD exacerbation I will start her on azithromycin and prednisone for this she has scheduled bronchodilators and she will continue Symbicort I reviewed her chest x-ray from yesterday there is no clear evidence of pneumonia but this is equivocal clinically not behaving as if she has pneumonia may need to broaden antimicrobials based upon clinical course however as she is clearly at high risk Pulmonary will continue to follow Subjective Principal diagnosis: Hip Fracture Interval history: Patient was able to be taken off the BiPAP yesterday for most of the day but actually to go back on it yesterday evening when she was noted to desaturate down into the 70s. She says her breathing still but worse today than where it was yesterday night any fevers but she has been coughing up little bit of phlegm Objective PUL Vital signs: Last Vital Signs Temp 98.9 F 04/01/18 04:11 Pulse 71 04/01/18 04:11 Resp 13 04/01/18 04:35 BP 116/75 04/01/18 04:11 Pulse Ox 99 04/01/18 04:35 General appearance: no acute distress Eyes: nonicteric Neck: supple Auscultation: bilateral: wheezes Cardiovascular: regular rate and rhythm Gastrointestinal: normoactive bowel sounds Extremities: no cyanosis, no edema, no clubbing Musculoskeletal: no deformities normal mental status, non-focal exam mood appropriate Results - Laboratory Findings CBC and BMP: 04/01/18 04:27 04/01/18 04:27 ABG ABG pH 7.34 pH Units (7.32-7.45) 03/30/18 22:54 ABG pCO2 69 mmHg (35-45) H 03/30/18 22:54 ABG pO2 50 mmHg (85-104) L* 03/30/18 22:54 ABG O2 Saturation 81 % (95-98) L 03/30/18 22:54 PT/INR, D-dimer PT 12.0 Seconds (9.4-12.1) 03/30/18 08:43 Abnormal lab findings: Abnormal lab results RBC 3.13 M/mcL (3.82-4.97) L 04/01/18 04:27 Hgb 9.4 g/dL (11.5-15.4) L 04/01/18 04:27 Hct 28.8 % (35.3-44.9) L 04/01/18 04:27 Lymphocytes # 0.5 K/mcL (0.6-4.6) L 04/01/18 04:27 ABG pCO2 69 mmHg (35-45) H 03/30/18 22:54 ABG pO2 50 mmHg (85-104) L* 03/30/18 22:54 ABG HCO3 37 mEq/L (21-27) H 03/30/18 22:54 ABG Total CO2 39 mEq/L (20-26) H 03/30/18 22:54 ABG O2 Saturation 81 % (95-98) L 03/30/18 22:54 ABG Base Excess 9 mEq/L (-2 to 3) H 03/30/18 22:54 Chloride 96 mEq/L (98-107) L 04/01/18 04:27 Carbon Dioxide 33 mEq/L (23-29) H 04/01/18 04:27 Creatinine 0.50 mg/dL (0.60-1.20) L 04/01/18 04:27 BUN/Creatinine Ratio 34 (6-26) H 04/01/18 04:27 Calcium 8.4 mg/dL (8.6-10.3) L 04/01/18 04:27 Serum Total Protein 5.7 g/dL (6.4-8.9) L 04/01/18 04:27 Albumin 3.3 g/dL (3.5-5.7) L 04/01/18 04:27 - Diagnostic Findings Chest x-ray: report reviewed, image reviewed - Clinical Findings Intake & Output: Intake & Output 03/31/18 03/31/18 04/01/18 15:59 23:59 07:59 Intake Total 100 / 100 Output Total 150 / 150 200 / 200 Balance 100 / 100 -150 / -150 -200 / -200 Weight 48.5 kg - VTE Documentation of Mechanical Device: Venous foot pump, device Consult Discharge Plan - Plan Referrals: Annie Elliott MD [Primary Care Provider] -
--- NOTE | 2018-04-01 06:44 | Orthopedics Progress Note ---
Date of Encounter: 04/01/18 Time of Encounter: 06:43 Subjective Principal diagnosis: Hip Fracture Interval history: Patient was seen this morning doing well without complaints. Afebrile vital signs stable. Operative extremity: Neurovascularly intact Dressing clean dry and intact Calves nontender Assessment and plan: Continue with postoperative care Discharged when medically stable Objective Vital signs: Vital Signs Temp Pulse Resp BP Pulse Ox 04/01/18 04:35 13 99 04/01/18 04:11 98.9 F 71 15 116/75 93 04/01/18 00:42 99.1 F 108 12 125/79 95 03/31/18 23:25 16 96 03/31/18 19:52 22 97 03/31/18 19:45 98.9 F 110 24 110/63 96 03/31/18 16:45 16 94 03/31/18 10:00 98 F 98 16 108/64 97 03/31/18 08:26 16 93 Intake and Output 03/31/18 03/31/18 04/01/18 15:59 23:59 07:59 Intake Total 100 / 100 Output Total 150 / 150 200 / 200 Balance 100 / 100 -150 / -150 -200 / -200 Intake: IV Fluids 100 / 100 Ancef 2,000 MG In 0.9 % Sodium 100 / 100 Chloride 100 ML @ 200 mls/hr IVPB Q8HR [facility] Rx#:[id number] Output: Urine 150 / 150 200 / 200 Other: Stool Size Smear Stool Color Brown # Voids 1 Weight 48.5 kg Patient Weight 04/01/18 23:59 Weight 48.5 kg - Labs CBC & BMP: 04/01/18 04:27 04/01/18 04:27 Labs: Abnormal lab results RBC 3.13 M/mcL (3.82-4.97) L 04/01/18 04:27 Hgb 9.4 g/dL (11.5-15.4) L 04/01/18 04:27 Hct 28.8 % (35.3-44.9) L 04/01/18 04:27 Lymphocytes # 0.5 K/mcL (0.6-4.6) L 04/01/18 04:27 ABG pCO2 69 mmHg (35-45) H 03/30/18 22:54 ABG pO2 50 mmHg (85-104) L* 03/30/18 22:54 ABG HCO3 37 mEq/L (21-27) H 03/30/18 22:54 ABG Total CO2 39 mEq/L (20-26) H 03/30/18 22:54 ABG O2 Saturation 81 % (95-98) L 03/30/18 22:54 ABG Base Excess 9 mEq/L (-2 to 3) H 03/30/18 22:54 Chloride 96 mEq/L (98-107) L 04/01/18 04:27 Carbon Dioxide 33 mEq/L (23-29) H 04/01/18 04:27 Creatinine 0.50 mg/dL (0.60-1.20) L 04/01/18 04:27 BUN/Creatinine Ratio 34 (6-26) H 04/01/18 04:27 Calcium 8.4 mg/dL (8.6-10.3) L 04/01/18 04:27 Serum Total Protein 5.7 g/dL (6.4-8.9) L 04/01/18 04:27 Albumin 3.3 g/dL (3.5-5.7) L 04/01/18 04:27 - VTE Documentation of Mechanical Device: Venous foot pump, device Consult Discharge Plan - Plan Referrals: Annie Elliott MD [Primary Care Provider] -
--- NOTE | 2018-04-01 08:27 | Internal Med Progress Note ---
Hospitalist Progress Note - Encounter Date of Encounter: 04/01/18 Time of Encounter: 11:00 - Subjective Interval History: Patient presents with acute right femoral neck fracture secondary to mechanical fall postop day 2 right hip open pending Awaiting certification for detention facility placement - Exam Vitals: Temp Pulse Resp BP Pulse Ox 98.9 F 71 13 116/75 99 04/01/18 04:11 04/01/18 04:11 04/01/18 04:35 04/01/18 04:11 04/01/18 04:35 Exam: Gen.: Nonacute distress, alert and oriented 3 ENT: Mucosal membranes moist Respiratory: Lungs are clear to auscultation bilaterally without any wheezing rhonchi or rales Cardiovascular: Normal S1 and S2 regular rate rhythm no murmurs rubs or gallops Abdomen: Soft, nontender and nondistended with positive bowel sounds Extremities: No lower extremity edema Skin: Normal color - Assessment and Plan (1) Acute and chronic respiratory failure with hypoxia Current Visit: Yes Status: Acute Assessment and Plan: Patient wore BiPAP overnight with no issues Will wean patient back to baseline O2 supplementation as tolerates (2) Fracture of femoral neck, right Current Visit: Yes Status: Acute Assessment and Plan: Patient presents with acute right femoral neck fracture secondary to mechanical fall postop day 2 right hip open pending Orthopedics following and appreciate recommendations (3) Anemia Current Visit: Yes Status: Acute Assessment and Plan: Patient with chronic anemia which is stable Hemoglobin 9.4 this morning; baseline appears to be 10.0 (4) COPD (chronic obstructive pulmonary disease) Current Visit: Yes Status: Acute Assessment and Plan: Patient started on azithromycin per pulmonology recommendations for suspected mild COPD exacerbation Continue scheduled DuoNeb's in addition to theophylline DVT Prophylaxis: EPCDs and subcutaneous heparin - Time Spent with Patient Total time spent is greater than 50% in coordination of care (as documented) at patient's floor/unit and/or counseling patient: Internal Medicine: Result - Labs CBC & Chem 7: 04/02/18 03:54 04/02/18 03:54 Labs: Short CBC 03/31/18 04/01/18 Range/Units 07:59 04:27 WBC 10.0 8.2 (4.3-11.1) K/mcL Hgb 9.6 L 9.4 L (11.5-15.4) g/dL Hct 30.3 L 28.8 L (35.3-44.9) % Plt Count 192 174 (140-400) K/mcL Neutrophils # 8.5 6.5 (1.6-8.9) K/mcL BMP 03/31/18 04/01/18 07:59 04:27 Sodium 136 136 Potassium 3.4 L 3.5 Chloride 96 L 96 L Carbon Dioxide 36 H 33 H BUN 17 17 Creatinine 0.60 0.50 L Glucose 83 100 Calcium 8.5 L 8.4 L Liver Function 04/01/18 Range/Units 04:27 Total Bilirubin 0.3 (0.3-1.0) mg/dL AST 24 (13-39) Units/L ALT 11 (7-52) Units/L Alkaline Phosphatase 45 (34-104) Units/L Albumin 3.3 L (3.5-5.7) g/dL - ABG Interpretation ABG results: ABG ABG pH 7.34 pH Units (7.32-7.45) 03/30/18 22:54 ABG pCO2 69 mmHg (35-45) H 03/30/18 22:54 ABG pO2 50 mmHg (85-104) L* 03/30/18 22:54 ABG O2 Saturation 81 % (95-98) L 03/30/18 22:54 PT/INR, D-dimer PT 12.0 Seconds (9.4-12.1) 03/30/18 08:43 - Impressions Impressions Chest X-Ray 03/31/18 08:50 IMPRESSION: Increased interstitial opacities in right suprahilar and right hilar location which could suggest developing peribronchial inflammation or pulmonary vascular congestion. Continued follow-up could be helpful for further evaluation. D/ / Bryson Villagomez / Bryson Villagomez Interpreting Provider: Bryson Villagomez - VTE Documentation of Mechanical Device: Venous foot pump, device Consult Discharge Plan - Plan Referrals: Annie Elliott MD [Primary Care Provider] - (2) Fracture of femoral neck, right Qualifiers: Encounter type: initial encounter Fracture type: closed Qualified Code(s): S72.001A - Fracture of unspecified part of neck of right femur, initial encounter for closed fracture (4) COPD (chronic obstructive pulmonary disease) Qualifiers: COPD type: emphysema Emphysema type: unspecified Qualified Code(s): J43.9 - Emphysema, unspecified
[2018-04-01] MEDS: Azithromycin 250 MG in D5% in Water 250 ML IVPB SCH (09:54)
[2018-04-01] MEDS: Budesonide/Formoterol 160/4.5 1 PUFF INH IH SCH ×2 (11:17→23:03)
[2018-04-01] MEDS: Ipratropium/Albuterol Neb 3 ML IH SCH ×3 (11:17→23:03)
[2018-04-01] MEDS: predniSONE 20 MG TABLET PO SCH (13:59)
[2018-04-01] MEDS: Ondansetron 4 MG/2 ML VIAL IVP PRN (14:06)
[2018-04-02] MEDS: Ipratropium/Albuterol Neb 3 ML IH SCH ×4 (03:50→22:05)
[2018-04-02 04:26] LABS: Hematocrit 28.5 % (35.3-44.9); Hemoglobin 9.4 g/dL (11.5-15.4); Immature Granulocytes % 0.4 % (0-4); Lymphocytes # 0.3 K/mcL (0.6-4.6); Lymphocytes % 5.2 %; Mean Corpuscular Hemoglobin 30.1 pg (28.0-33.3); Mean Corpuscular Volume 91.3 fL (83.0-100.0); Mean Platelet Volume 9.6 fL (9.4-12.4); Monocytes # 0.5 K/mcL (0.0-1.3); Monocytes % 9.3 %; Neutrophils # 4.6 K/mcL (1.6-8.9); Platelet Count 189 K/mcL (140-400); Red Blood Count 3.12 M/mcL (3.82-4.97); Red Cell Distribution Width 12.5 % (11.5-14.5); Segmented Neutrophils % 85.1 %
[2018-04-02 04:47] LABS: Alanine Aminotransferase 12 Units/L (7-52); Albumin 3.3 g/dL (3.5-5.7); Albumin/Globulin Ratio 1.3 (1.1-2.2); Alkaline Phosphatase 44 Units/L (34-104); Aspartate Amino Transferase 20 Units/L (13-39); BUN/Creatinine Ratio 32 (6-26); Bilirubin,Total 0.3 mg/dL (0.3-1.0); Blood Urea Nitrogen 16 mg/dL (8-23); Calcium 8.7 mg/dL (8.6-10.3); Carbon Dioxide 38 mEq/L (23-29); Chloride 98 mEq/L (98-107); Globulin 2.6 g/dL (2.4-3.5); Glucose 112 mg/dL (70-105); Osmolality,Calculated 294 (280-300); Potassium 3.5 mEq/L (3.5-5.1); Sodium 141 mEq/L (136-145); Total Protein 5.9 g/dL (6.4-8.9); eGFR For Non-African Americans > 60 (> 60)
[2018-04-02] MEDS: *HR* Heparin 5,000 UNIT/ML VIAL SQ SCH ×2 (05:44→17:02)
--- NOTE | 2018-04-02 08:27 | Internal Med Progress Note ---
Hospitalist Progress Note - Encounter Date of Encounter: 04/02/18 Time of Encounter: 11:00 - Subjective Interval History: Patient presents with acute right femoral neck fracture secondary to mechanical fall postop day 3 right hip open pending Awaiting certification for retirement facility placement - Exam Vitals: Temp Pulse Resp BP Pulse Ox 98.6 F 91 14 131/69 98 04/02/18 03:47 04/02/18 03:47 04/02/18 03:50 04/02/18 03:47 04/02/18 06:00 Exam: Gen.: Nonacute distress, alert and oriented 3 ENT: Mucosal membranes moist Respiratory: Lungs are clear to auscultation bilaterally without any wheezing rhonchi or rales Cardiovascular: Normal S1 and S2 regular rate rhythm no murmurs rubs or gallops Abdomen: Soft, nontender and nondistended with positive bowel sounds Extremities: No lower extremity edema Skin: Normal color - Assessment and Plan (1) Acute and chronic respiratory failure with hypoxia Current Visit: Yes Status: Acute Assessment and Plan: Resolved; patient currently on baseline O2 requirements (2) Fracture of femoral neck, right Current Visit: Yes Status: Acute Assessment and Plan: Patient presents with acute right femoral neck fracture secondary to mechanical fall postop day 3 right hip open pending Orthopedics following and appreciate recommendations (3) Anemia Current Visit: Yes Status: Acute Assessment and Plan: Patient with chronic anemia which is stable Hemoglobin 9.4 this morning; baseline appears to be 10.0 Continue to monitor (4) COPD (chronic obstructive pulmonary disease) Current Visit: Yes Status: Acute Assessment and Plan: Patient on azithromycin per pulmonology recommendations for suspected mild COPD exacerbation Continue scheduled DuoNeb's in addition to theophylline DVT Prophylaxis: EPCDs and subcutaneous heparin - Time Spent with Patient Total time spent is greater than 50% in coordination of care (as documented) at patient's floor/unit and/or counseling patient: Internal Medicine: Result - Labs CBC & Chem 7: 04/02/18 03:54 04/02/18 03:54 Labs: Short CBC 04/02/18 Range/Units 03:54 WBC 5.4 (4.3-11.1) K/mcL Hgb 9.4 L (11.5-15.4) g/dL Hct 28.5 L (35.3-44.9) % Plt Count 189 (140-400) K/mcL Neutrophils # 4.6 (1.6-8.9) K/mcL BMP 04/02/18 03:54 Sodium 141 Potassium 3.5 Chloride 98 Carbon Dioxide 38 H BUN 16 Creatinine 0.50 L Glucose 112 H Calcium 8.7 Liver Function 04/02/18 Range/Units 03:54 Total Bilirubin 0.3 (0.3-1.0) mg/dL AST 20 (13-39) Units/L ALT 12 (7-52) Units/L Alkaline Phosphatase 44 (34-104) Units/L Albumin 3.3 L (3.5-5.7) g/dL - ABG Interpretation ABG results: ABG ABG pH 7.34 pH Units (7.32-7.45) 03/30/18 22:54 ABG pCO2 69 mmHg (35-45) H 03/30/18 22:54 ABG pO2 50 mmHg (85-104) L* 03/30/18 22:54 ABG O2 Saturation 81 % (95-98) L 03/30/18 22:54 PT/INR, D-dimer PT 12.0 Seconds (9.4-12.1) 03/30/18 08:43 - Impressions Impressions Hip X-Ray 03/30/18 15:16 IMPRESSION: Expected postsurgical changes from internal fixation of a right femoral neck fracture with near anatomic alignment. D/ /30/2018 17:46:58 Iram Roth MD / sharyn Interpreting Provider: Iram Roth MD - VTE Documentation of Mechanical Device: Venous foot pump, device Consult Discharge Plan - Plan Referrals: Annie Elliott MD [Primary Care Provider] - (2) Fracture of femoral neck, right Qualifiers: Encounter type: initial encounter Fracture type: closed Qualified Code(s): S72.001A - Fracture of unspecified part of neck of right femur, initial encounter for closed fracture (4) COPD (chronic obstructive pulmonary disease) Qualifiers: COPD type: emphysema Emphysema type: unspecified Qualified Code(s): J43.9 - Emphysema, unspecified
--- NOTE | 2018-04-02 08:45 | Pulmonology Progress Note ---
Date of Encounter: 04/02/18 Time of Encounter: 08:45 Assessment and Plan (1) Acute and chronic respiratory failure with hypoxia Current Visit: Yes Status: Acute She is is being weaned back to her home FiO2 levels Out of bed to chair incentive spirometry and PTOT consultation (2) COPD exacerbation Current Visit: Yes Status: Acute Continue azithromycin for 5 days 250 mg would also schedule prednisone 40 mg for 5 days she can go back to her home COPD regimen she will need follow-up in pulmonary clinic in 1-2 weeks of the time of discharge Pulmonary will sign off please call with any questions (3) DVT prophylaxis Current Visit: Yes Status: Acute She is on heparin and SCDs Pulmonary will continue to follow closely Subjective Principal diagnosis: Hip Fracture Interval history: Ms. Hall is doing much better today. She has been weaned off his CPAP area says that breathing is getting back to baseline. She does complain of some modest right lower leg pain Objective PUL Vital signs: Last Vital Signs Temp 97.9 F 04/02/18 08:27 Pulse 63 04/02/18 08:27 Resp 16 04/02/18 08:27 BP 135/80 04/02/18 08:27 Pulse Ox 96 04/02/18 08:27 General appearance: no acute distress Eyes: nonicteric Neck: supple Auscultation: bilateral: diminished breath sounds (No wheezing on today's examination) Cardiovascular: regular rate and rhythm Gastrointestinal: normoactive bowel sounds Integumentary: normal Extremities: no cyanosis, no clubbing, pink and warm Musculoskeletal: no deformities normal mental status, non-focal exam mood appropriate Results - Laboratory Findings CBC and BMP: 04/02/18 03:54 04/02/18 03:54 ABG ABG pH 7.34 pH Units (7.32-7.45) 03/30/18 22:54 ABG pCO2 69 mmHg (35-45) H 03/30/18 22:54 ABG pO2 50 mmHg (85-104) L* 03/30/18 22:54 ABG O2 Saturation 81 % (95-98) L 03/30/18 22:54 PT/INR, D-dimer PT 12.0 Seconds (9.4-12.1) 03/30/18 08:43 Abnormal lab findings: Abnormal lab results RBC 3.12 M/mcL (3.82-4.97) L 04/02/18 03:54 Hgb 9.4 g/dL (11.5-15.4) L 04/02/18 03:54 Hct 28.5 % (35.3-44.9) L 04/02/18 03:54 Lymphocytes # 0.3 K/mcL (0.6-4.6) L 04/02/18 03:54 ABG pCO2 69 mmHg (35-45) H 03/30/18 22:54 ABG pO2 50 mmHg (85-104) L* 03/30/18 22:54 ABG HCO3 37 mEq/L (21-27) H 03/30/18 22:54 ABG Total CO2 39 mEq/L (20-26) H 03/30/18 22:54 ABG O2 Saturation 81 % (95-98) L 03/30/18 22:54 ABG Base Excess 9 mEq/L (-2 to 3) H 03/30/18 22:54 Carbon Dioxide 38 mEq/L (23-29) H 04/02/18 03:54 Creatinine 0.50 mg/dL (0.60-1.20) L 04/02/18 03:54 BUN/Creatinine Ratio 32 (6-26) H 04/02/18 03:54 Glucose 112 mg/dL (70-105) H 04/02/18 03:54 Serum Total Protein 5.9 g/dL (6.4-8.9) L 04/02/18 03:54 Albumin 3.3 g/dL (3.5-5.7) L 04/02/18 03:54 - Clinical Findings Intake & Output: Intake & Output 04/01/18 04/02/18 04/02/18 23:59 07:59 15:59 Intake Total 0 / 0 0 / 0 Output Total 325 / 325 0 / 0 Balance -325 / -325 0 / 0 Weight 47.2 kg - VTE Documentation of Mechanical Device: Venous foot pump, device Consult Discharge Plan - Plan Referrals: Annie Elliott MD [Primary Care Provider] -
[2018-04-02] MEDS: Azithromycin 250 MG in D5% in Water 250 ML IVPB SCH (08:46)
[2018-04-02] MEDS: predniSONE 20 MG TABLET PO SCH (08:48)
[2018-04-02] MEDS: Budesonide/Formoterol 160/4.5 1 PUFF INH IH SCH ×2 (10:06→22:05)
[2018-04-02] MEDS ORDERED: Ipratropium/Albuterol Neb 3 ML IH PRN (19:17)
[2018-04-02] MEDS ORDERED: Ondansetron ODT 4 MG TAB.RAPDIS PO PRN (19:17)
[2018-04-02] MEDS ORDERED: NON-FORMULARY MEDICATION 1 EACH EACH (Oxygen [Oxygen] 3.5 L) IH SCH (19:30)
[2018-04-02] MEDS: Ketorolac 15 MG/ML VIAL IVP PRN (21:14)
[2018-04-02] MEDS: *HR* Acetylcysteine 20% 600 MG/3 ML ORAL SYRINGE PO SCH (21:14)
[2018-04-03] MEDS: Ipratropium/Albuterol Neb 3 ML IH SCH ×4 (04:37→21:36)
[2018-04-03] MEDS: *HR* Heparin 5,000 UNIT/ML VIAL SQ SCH ×2 (06:26→16:44)
[2018-04-03 07:24] LABS: Basophils % 0.2 %; Eosinophils % 0.4 %; Hematocrit 27.1 % (35.3-44.9); Hemoglobin 8.8 g/dL (11.5-15.4); Immature Granulocytes % 0.2 % (0-4); Lymphocytes # 0.7 K/mcL (0.6-4.6); Lymphocytes % 12.6 %; Mean Corpuscular HGB Conc 32.5 g/dL (31.6-35.5); Mean Corpuscular Hemoglobin 29.8 pg (28.0-33.3); Mean Corpuscular Volume 91.9 fL (83.0-100.0); Mean Platelet Volume 9.5 fL (9.4-12.4); Monocytes # 0.7 K/mcL (0.0-1.3); Monocytes % 13.7 %; Neutrophils # 3.9 K/mcL (1.6-8.9); Platelet Count 229 K/mcL (140-400); Red Blood Count 2.95 M/mcL (3.82-4.97); Red Cell Distribution Width 12.5 % (11.5-14.5); Segmented Neutrophils % 72.9 %
[2018-04-03 07:45] LABS: Alanine Aminotransferase 10 Units/L (7-52); Albumin 3.1 g/dL (3.5-5.7); Albumin/Globulin Ratio 1.4 (1.1-2.2); Alkaline Phosphatase 40 Units/L (34-104); Aspartate Amino Transferase 15 Units/L (13-39); BUN/Creatinine Ratio 28 (6-26); Bilirubin,Total 0.3 mg/dL (0.3-1.0); Blood Urea Nitrogen 16 mg/dL (8-23); Calcium 8.7 mg/dL (8.6-10.3); Carbon Dioxide 34 mEq/L (23-29); Chloride 96 mEq/L (98-107); Globulin 2.2 g/dL (2.4-3.5); Glucose 83 mg/dL (70-105); Osmolality,Calculated 286 (280-300); Potassium 3.4 mEq/L (3.5-5.1); Sodium 138 mEq/L (136-145); Total Protein 5.3 g/dL (6.4-8.9); eGFR For Non-African Americans > 60 (> 60)
--- NOTE | 2018-04-03 08:30 | Internal Med Progress Note ---
Hospitalist Progress Note - Encounter Date of Encounter: 04/03/18 Time of Encounter: 11:00 - Subjective Interval History: Patient with acute right femoral neck fracture secondary to mechanical fall postop day 4 right hip open pending She is also being treated for mild COPD exacerbation Awaiting certification for [facility] facility placement - Exam Vitals: Temp Pulse Resp BP Pulse Ox 98.2 F 92 16 129/80 97 04/03/18 07:33 04/03/18 07:33 04/03/18 07:33 04/03/18 07:33 04/03/18 07:33 Exam: Gen.: Nonacute distress, alert and oriented 3 ENT: Mucosal membranes moist Respiratory: Lungs are clear to auscultation bilaterally without any wheezing rhonchi or rales Cardiovascular: Normal S1 and S2 regular rate rhythm no murmurs rubs or gallops Abdomen: Soft, nontender and nondistended with positive bowel sounds Extremities: No lower extremity edema Skin: Normal color - Assessment and Plan (1) Acute and chronic respiratory failure with hypoxia Current Visit: Yes Status: Acute Assessment and Plan: Resolved; patient currently on baseline O2 requirements (2) Fracture of femoral neck, right Current Visit: Yes Status: Acute Assessment and Plan: Patient presents with acute right femoral neck fracture secondary to mechanical fall postop day 4 right hip open pending Orthopedics following and appreciate recommendations (3) Anemia Current Visit: Yes Status: Acute Assessment and Plan: Patient with chronic anemia which is stable Hemoglobin 8.8 this morning; baseline appears to be 10.0 Continue to monitor (4) COPD (chronic obstructive pulmonary disease) Current Visit: Yes Status: Acute Assessment and Plan: Patient on azithromycin per pulmonology recommendations for suspected mild COPD exacerbation Continue scheduled DuoNeb's in addition to theophylline DVT Prophylaxis: EPCDs and subcutaneous heparin - Time Spent with Patient Total time spent is greater than 50% in coordination of care (as documented) at patient's floor/unit and/or counseling patient: Internal Medicine: Result - Labs CBC & Chem 7: 04/03/18 06:17 04/03/18 06:17 Labs: Short CBC 04/03/18 Range/Units 06:17 WBC 5.4 (4.3-11.1) K/mcL Hgb 8.8 L (11.5-15.4) g/dL Hct 27.1 L (35.3-44.9) % Plt Count 229 (140-400) K/mcL Neutrophils # 3.9 (1.6-8.9) K/mcL BMP 04/03/18 06:17 Sodium 138 Potassium 3.4 L Chloride 96 L Carbon Dioxide 34 H BUN 16 Creatinine 0.58 L Glucose 83 Calcium 8.7 Liver Function 04/03/18 Range/Units 06:17 Total Bilirubin 0.3 (0.3-1.0) mg/dL AST 15 (13-39) Units/L ALT 10 (7-52) Units/L Alkaline Phosphatase 40 (34-104) Units/L Albumin 3.1 L (3.5-5.7) g/dL - ABG Interpretation ABG results: ABG ABG pH 7.34 pH Units (7.32-7.45) 03/30/18 22:54 ABG pCO2 69 mmHg (35-45) H 03/30/18 22:54 ABG pO2 50 mmHg (85-104) L* 03/30/18 22:54 ABG O2 Saturation 81 % (95-98) L 03/30/18 22:54 PT/INR, D-dimer PT 12.0 Seconds (9.4-12.1) 03/30/18 08:43 - VTE Documentation of Mechanical Device: Venous foot pump, device Consult Discharge Plan - Plan Referrals: Annie Elliott MD [Primary Care Provider] - (2) Fracture of femoral neck, right Qualifiers: Encounter type: initial encounter Fracture type: closed Qualified Code(s): S72.001A - Fracture of unspecified part of neck of right femur, initial encounter for closed fracture (4) COPD (chronic obstructive pulmonary disease) Qualifiers: COPD type: emphysema Emphysema type: unspecified Qualified Code(s): J43.9 - Emphysema, unspecified
[2018-04-03] MEDS: predniSONE 20 MG TABLET PO SCH (09:33)
[2018-04-03] MEDS: FLUoxetine 20 MG CAPSULE PO SCH (09:33)
[2018-04-03] MEDS: hydroCHLOROthiazide 25 MG TABLET PO SCH (09:33)
[2018-04-03] MEDS: Aspirin 81 MG TAB.CHEW PO SCH (09:33)
[2018-04-03] MEDS: Multivit/Ca/Min/Fe/FA 1 TAB TABLET PO SCH (09:33)
[2018-04-03] MEDS: *HR* Acetylcysteine 20% 600 MG/3 ML ORAL SYRINGE PO SCH ×2 (09:34→21:29)
[2018-04-03] MEDS: Cholecalciferol (D-3) 1,000 UNIT TABLET PO SCH (09:34)
[2018-04-03] MEDS: Azithromycin 250 MG in D5% in Water 250 ML IVPB SCH (09:48)
[2018-04-03] MEDS: Budesonide/Formoterol 160/4.5 1 PUFF INH IH SCH ×2 (09:55→21:36)
[2018-04-03] MEDS: Ketorolac 15 MG/ML VIAL IVP PRN (16:44)
[2018-04-04] MEDS: Ipratropium/Albuterol Neb 3 ML IH SCH ×4 (04:24→23:24)
[2018-04-04 05:48] LABS: Hematocrit 27.5 % (35.3-44.9); Hemoglobin 9.1 g/dL (11.5-15.4)
[2018-04-04] MEDS: *HR* Heparin 5,000 UNIT/ML VIAL SQ SCH ×2 (06:48→18:50)
[2018-04-04] MEDS: Aspirin 81 MG TAB.CHEW PO SCH (08:29)
[2018-04-04] MEDS: predniSONE 20 MG TABLET PO SCH (08:30)
[2018-04-04] MEDS: FLUoxetine 20 MG CAPSULE PO SCH (08:30)
[2018-04-04] MEDS: hydroCHLOROthiazide 25 MG TABLET PO SCH (08:30)
[2018-04-04] MEDS: Multivit/Ca/Min/Fe/FA 1 TAB TABLET PO SCH (08:30)
[2018-04-04] MEDS: Cholecalciferol (D-3) 1,000 UNIT TABLET PO SCH (08:30)
[2018-04-04] MEDS: *HR* Acetylcysteine 20% 600 MG/3 ML ORAL SYRINGE PO SCH ×2 (08:31→21:01)
[2018-04-04] MEDS: Budesonide/Formoterol 160/4.5 1 PUFF INH IH SCH ×2 (11:14→23:24)
[2018-04-04] MEDS: Azithromycin 250 MG in D5% in Water 250 ML IVPB SCH (13:27)
[2018-04-04 15:29] LABS: Basophils % 0.2 %; Eosinophils % 0.2 %; Hematocrit 31.9 % (35.3-44.9); Hemoglobin 10.4 g/dL (11.5-15.4); Immature Granulocytes % 0.9 % (0-4); Lymphocytes # 0.2 K/mcL (0.6-4.6); Mean Corpuscular HGB Conc 32.6 g/dL (31.6-35.5); Mean Corpuscular Volume 91.9 fL (83.0-100.0); Mean Platelet Volume 9.3 fL (9.4-12.4); Monocytes # 0.1 K/mcL (0.0-1.3); Monocytes % 2.3 %; Neutrophils # 5.3 K/mcL (1.6-8.9); Platelet Count 278 K/mcL (140-400); Red Blood Count 3.47 M/mcL (3.82-4.97); Red Cell Distribution Width 12.6 % (11.5-14.5); Segmented Neutrophils % 92.4 %
[2018-04-04 15:44] LABS: BUN/Creatinine Ratio 33 (6-26); Blood Urea Nitrogen 19 mg/dL (8-23); Calcium 9.2 mg/dL (8.6-10.3); Carbon Dioxide 37 mEq/L (23-29); Chloride 93 mEq/L (98-107); Glucose 236 mg/dL (70-105); Osmolality,Calculated 292 (280-300); Potassium 3.3 mEq/L (3.5-5.1); Sodium 136 mEq/L (136-145); eGFR For Non-African Americans > 60 (> 60)
[2018-04-04 15:56] LABS: ABG Base Excess 15 mEq/L (-2 to 3); ABG HCO3 40 mEq/L (21-27); ABG Oxygen Saturation 91 % (95-98); ABG PCO2 55 mmHg (35-45); ABG PH 7.47 pH Units (7.32-7.45); ABG PO2 58 mmHg (85-104); ABG TCO2 42 mEq/L (20-26)
[2018-04-04] MEDS ORDERED: Isovue-370 500 ML INFUS..BTL IV ONE (19:09)
--- NOTE | 2018-04-04 19:28 | Internal Med Progress Note ---
Hospitalist Progress Note - Encounter Date of Encounter: 04/04/18 Time of Encounter: 11:00 - Subjective Interval History: Patient with acute right femoral neck fracture secondary to mechanical fall postop day 4 right hip open pending She is also being treated for mild COPD exacerbation Patient did report of some increased shortness of breath this morning however O2 sats remained in low 90s on baseline O2 requirements and chest x-ray without any acute findings and ABG improved from admission; CTPA pending Awaiting certification for alf facility placement - Exam Vitals: Temp Pulse Resp BP Pulse Ox 98.0 F 120 16 141/75 95 04/04/18 18:32 04/04/18 18:32 04/04/18 18:32 04/04/18 18:32 04/04/18 18:32 Exam: Gen.: Nonacute distress, alert and oriented 3 ENT: Mucosal membranes moist Respiratory: Lungs are clear to auscultation bilaterally without any wheezing rhonchi or rales Cardiovascular: Normal S1 and S2 regular rate rhythm no murmurs rubs or gallops Abdomen: Soft, nontender and nondistended with positive bowel sounds Extremities: No lower extremity edema Skin: Normal color - Assessment and Plan (1) Acute and chronic respiratory failure with hypoxia Current Visit: Yes Status: Acute Assessment and Plan: Patient did report of some increased shortness of breath this morning however O2 sats remained in low 90s on baseline O2 requirements and chest x-ray without any acute findings and ABG improved from admission; CTPA pending (2) Fracture of femoral neck, right Current Visit: Yes Status: Acute Assessment and Plan: Patient presents with acute right femoral neck fracture secondary to mechanical fall postop day 4 right hip open pending Orthopedics following and appreciate recommendations (3) Anemia Current Visit: Yes Status: Acute Assessment and Plan: Patient with chronic anemia which is stable Hemoglobin 8.8 this morning; baseline appears to be 10.0 Continue to monitor (4) COPD (chronic obstructive pulmonary disease) Current Visit: Yes Status: Acute Assessment and Plan: Patient on azithromycin per pulmonology recommendations for suspected mild COPD exacerbation Continue scheduled DuoNeb's in addition to theophylline DVT Prophylaxis: EPCDs and subcutaneous heparin - Time Spent with Patient Total time spent is greater than 50% in coordination of care (as documented) at patient's floor/unit and/or counseling patient: Internal Medicine: Result - Labs CBC & Chem 7: 04/04/18 15:14 04/04/18 15:14 Labs: Short CBC 04/04/18 04/04/18 Range/Units 05:27 15:14 WBC 5.7 (4.3-11.1) K/mcL Hgb 9.1 L 10.4 L (11.5-15.4) g/dL Hct 27.5 L 31.9 L (35.3-44.9) % Plt Count 278 (140-400) K/mcL Neutrophils # 5.3 (1.6-8.9) K/mcL BMP 04/04/18 15:14 Sodium 136 Potassium 3.3 L Chloride 93 L Carbon Dioxide 37 H BUN 19 Creatinine 0.57 L Glucose 236 H Calcium 9.2 - ABG Interpretation ABG results: ABG ABG pH 7.47 pH Units (7.32-7.45) H 04/04/18 15:52 ABG pCO2 55 mmHg (35-45) H 04/04/18 15:52 ABG pO2 58 mmHg (85-104) L 04/04/18 15:52 ABG O2 Saturation 91 % (95-98) L 04/04/18 15:52 PT/INR, D-dimer PT 12.0 Seconds (9.4-12.1) 03/30/18 08:43 - Impressions Impressions Chest X-Ray 04/04/18 14:57 IMPRESSION: No definite radiographic evidence of acute cardiopulmonary disease. Pulmonary sequela typical of that seen with smoking, including emphysema. Correlate with clinical history. D/ / Nathaniel Whitley / Nathaniel Whitley Interpreting Provider: Nathaniel Whitley - VTE Documentation of Mechanical Device: Venous foot pump, device Consult Discharge Plan - Plan Referrals: Annie Elliott MD [Primary Care Provider] - (Dr. Nuno appointment 04/06/2018 at 1:15 Dr. Atwood appointment 04/13/2018 at 11:15 Dr. Penn appointment 04/20/2018 at 4:30 ) (2) Fracture of femoral neck, right Qualifiers: Encounter type: initial encounter Fracture type: closed Qualified Code(s): S72.001A - Fracture of unspecified part of neck of right femur, initial encounter for closed fracture (4) COPD (chronic obstructive pulmonary disease) Qualifiers: COPD type: emphysema Emphysema type: unspecified Qualified Code(s): J43.9 - Emphysema, unspecified
[2018-04-05] MEDS: Ipratropium/Albuterol Neb 3 ML IH SCH ×4 (03:59→22:09)
[2018-04-05] MEDS: *HR* Heparin 5,000 UNIT/ML VIAL SQ SCH ×2 (05:32→16:54)
[2018-04-05] MEDS: *HR* Acetylcysteine 20% 600 MG/3 ML ORAL SYRINGE PO SCH ×2 (09:25→19:35)
[2018-04-05] MEDS: Aspirin 81 MG TAB.CHEW PO SCH (09:26)
[2018-04-05] MEDS: FLUoxetine 20 MG CAPSULE PO SCH (09:26)
[2018-04-05] MEDS: Multivit/Ca/Min/Fe/FA 1 TAB TABLET PO SCH (09:26)
[2018-04-05] MEDS: predniSONE 20 MG TABLET PO SCH (09:26)
[2018-04-05] MEDS: Cholecalciferol (D-3) 1,000 UNIT TABLET PO SCH (09:27)
[2018-04-05] MEDS: hydroCHLOROthiazide 25 MG TABLET PO SCH (09:27)
[2018-04-05] MEDS: Azithromycin 250 MG in D5% in Water 250 ML IVPB SCH (09:33)
[2018-04-05] MEDS: Budesonide/Formoterol 160/4.5 1 PUFF INH IH SCH ×2 (11:26→22:09)
--- NOTE | 2018-04-05 12:02 | Internal Med Progress Note ---
Hospitalist Progress Note - Encounter Date of Encounter: 04/05/18 Time of Encounter: 12:02 - Subjective Interval History: Seen and examined with daughter at the bedside She has no new complains She is awaiting placement CTA done 04/04 showed no PE, severe emphysema. Patient is known to have severe COPD with CRF on home O2. She states she had a rough night because she was placed on BIPAP and the machine kept beeping, PCO2 from 04/04 noted to be 55. No alteration in mentation, no resp distress She is on azithromycin-Day 06/28 for COPDE, will change to po - Exam Vitals: Temp Pulse Resp BP Pulse Ox 98.1 F 91 16 140/73 99 04/05/18 11:09 04/05/18 11:09 04/05/18 11:26 04/05/18 11:09 04/05/18 11:26 Exam: VSS Gen: Sitting up in bed, elderly, not in any form of distress HEENT: Moist oral mucosa, anicteric, normal neck inspection Chest: Diminshed air entry , no rhonchi, no crackles, no wheezing heart: S1, S2only, no m/g/r Abdomen: Not tender, soft, Extremities: No pedal edema Neuro: AAOX3, no gross focal deficits Psych: Appropriate affect Skin: No rash - Assessment and Plan (1) Fracture of femoral neck, right Current Visit: Yes Status: Acute Assessment and Plan: Patient presents with acute right femoral neck fracture secondary to mechanical fall postop day 5 s/p ORIF Continue current management (2) COPD (chronic obstructive pulmonary disease) Current Visit: Yes Status: Acute Assessment and Plan: Patient on azithromycin per pulmonology recommendations for suspected mild COPD exacerbation Continue scheduled DuoNeb's in addition to theophylline (3) Acute and chronic respiratory failure with hypoxia Current Visit: Yes Status: Acute Assessment and Plan: Patient did report of some increased shortness of breath 04/05, however O2 sats remained in low 90s on baseline O2 requirements and chest x-ray without any acute findings and ABG improved from admission; CTPA showed severe emphysema, with no infiltrates (4) Anemia Current Visit: Yes Status: Acute Assessment and Plan: Patient with chronic anemia which is stable Hemoglobin 8.8 this morning; baseline appears to be 10.0 Continue to monitor DVT Prophylaxis: EPCDs and subcutaneous heparin - Time Spent with Patient Total time spent is greater than 50% in coordination of care (as documented) at patient's floor/unit and/or counseling patient: Plan of Care Discussed with: patient Internal Medicine: Result - Labs CBC & Chem 7: 04/04/18 15:14 04/04/18 15:14 Labs: Short CBC 04/04/18 Range/Units 15:14 WBC 5.7 (4.3-11.1) K/mcL Hgb 10.4 L (11.5-15.4) g/dL Hct 31.9 L (35.3-44.9) % Plt Count 278 (140-400) K/mcL Neutrophils # 5.3 (1.6-8.9) K/mcL BMP 04/04/18 15:14 Sodium 136 Potassium 3.3 L Chloride 93 L Carbon Dioxide 37 H BUN 19 Creatinine 0.57 L Glucose 236 H Calcium 9.2 - ABG Interpretation ABG results: ABG ABG pH 7.47 pH Units (7.32-7.45) H 04/04/18 15:52 ABG pCO2 55 mmHg (35-45) H 04/04/18 15:52 ABG pO2 58 mmHg (85-104) L 04/04/18 15:52 ABG O2 Saturation 91 % (95-98) L 04/04/18 15:52 PT/INR, D-dimer PT 12.0 Seconds (9.4-12.1) 03/30/18 08:43 - Impressions Impressions Chest X-Ray 04/04/18 14:57 IMPRESSION: No definite radiographic evidence of acute cardiopulmonary disease. Pulmonary sequela typical of that seen with smoking, including emphysema. Correlate with clinical history. D/ / Nathaniel Whitley / Nathaniel Whitley Interpreting Provider: Nathaniel Whitley Chest CTA 04/04/18 19:09 IMPRESSION: No evidence of pulmonary embolism or aortic dissection. Severe emphysema. Shotty lymph nodes within the upper abdomen, increased when compared to the previous exam, but incompletely evaluated. Consider repeat CT of the abdomen pelvis. D/ / Don Luevano MD / Don Luevano MD Interpreting Provider: Don Luevano MD - VTE Documentation of Mechanical Device: Venous foot pump, device Consult Discharge Plan - Plan Referrals: Annie Elliott MD [Primary Care Provider] - (Dr. Nuno appointment 04/06/2018 at 1:15 Dr. Atwood appointment 04/13/2018 at 11:15 Dr. Penn appointment 04/20/2018 at 4:30 ) (1) Fracture of femoral neck, right Qualifiers: Encounter type: initial encounter Fracture type: closed Qualified Code(s): S72.001A - Fracture of unspecified part of neck of right femur, initial encounter for closed fracture (2) COPD (chronic obstructive pulmonary disease) Qualifiers: COPD type: emphysema Emphysema type: unspecified Qualified Code(s): J43.9 - Emphysema, unspecified
--- NOTE | 2018-04-05 23:14 | Electrocardiograph Report ---
[place] [id number] Test Date: 2018-04-04 Pat Name: Meaghan Hall Department: 114 Room: [facility] Gender: F [facility] Teacher: : 1945 Requested By: Martin Donaldson Order Number: [id number] Reading MD: Bambi Hernandez Measurements Intervals [place] Rate: 111 P: 59 TX: 117 QRS: 75 QRSD: 77 T: 78 QT: 268 QTc: 333 Interpretive Statements SINUS TACHYCARDIA WITH SHORT TX INTERVAL BASELINE ARTIFACT Electronically Signed On 04-05-2018 23:12:43 EST by Bambi Hernandez
[2018-04-06] MEDS: Ipratropium/Albuterol Neb 3 ML IH SCH ×3 (04:07→15:44)
[2018-04-06] MEDS: *HR* Heparin 5,000 UNIT/ML VIAL SQ SCH (05:36)
[2018-04-06 07:02] LABS: Basophils % 0.2 %; Eosinophils # 0.1 K/mcL (0.0-0.6); Eosinophils % 1.4 %; Hemoglobin 9.4 g/dL (11.5-15.4); Immature Granulocytes % 0.8 % (0-4); Lymphocytes # 0.9 K/mcL (0.6-4.6); Lymphocytes % 15.1 %; Mean Corpuscular HGB Conc 32.4 g/dL (31.6-35.5); Mean Corpuscular Volume 92.7 fL (83.0-100.0); Mean Platelet Volume 9.2 fL (9.4-12.4); Monocytes # 0.8 K/mcL (0.0-1.3); Monocytes % 13.2 %; Neutrophils # 4.3 K/mcL (1.6-8.9); Platelet Count 301 K/mcL (140-400); Red Blood Count 3.13 M/mcL (3.82-4.97); Red Cell Distribution Width 12.7 % (11.5-14.5); Segmented Neutrophils % 69.3 %
[2018-04-06 07:11] LABS: BUN/Creatinine Ratio 30 (6-26); Blood Urea Nitrogen 19 mg/dL (8-23); Calcium 9.4 mg/dL (8.6-10.3); Carbon Dioxide 44 mEq/L (23-29); Chloride 92 mEq/L (98-107); Glucose 98 mg/dL (70-105); Osmolality,Calculated 292 (280-300); Potassium 3.3 mEq/L (3.5-5.1); Sodium 140 mEq/L (136-145); eGFR For Non-African Americans > 60 (> 60)
[2018-04-06 08:40] LABS: ABG Base Excess 17 mEq/L (-2 to 3); ABG HCO3 42 mEq/L (21-27); ABG Oxygen Saturation 92 % (95-98); ABG PCO2 52 mmHg (35-45); ABG PH 7.51 pH Units (7.32-7.45); ABG PO2 58 mmHg (85-104); ABG TCO2 44 mEq/L (20-26)
[2018-04-06] MEDS: *HR* Acetylcysteine 20% 600 MG/3 ML ORAL SYRINGE PO SCH (08:44)
[2018-04-06] MEDS: hydroCHLOROthiazide 25 MG TABLET PO SCH (08:45)
[2018-04-06] MEDS: FLUoxetine 20 MG CAPSULE PO SCH (08:45)
[2018-04-06] MEDS: Aspirin 81 MG TAB.CHEW PO SCH (08:46)
[2018-04-06] MEDS: Multivit/Ca/Min/Fe/FA 1 TAB TABLET PO SCH (08:46)
[2018-04-06] MEDS: Cholecalciferol (D-3) 1,000 UNIT TABLET PO SCH (08:46)
[2018-04-06] MEDS: predniSONE 20 MG TABLET PO SCH (08:47)
[2018-04-06] MEDS ORDERED: Azithromycin 250 MG TABLET PO SCH (10:00)
--- NOTE | 2018-04-06 11:07 | Internal Med Progress Note ---
Hospitalist Progress Note - Encounter Date of Encounter: 04/06/18 Time of Encounter: 11:07 - Subjective Interval History: Seen and examined with daughter at the bedside She has no new complains She is awaiting placement CTA done 04/04 showed no PE, severe emphysema. Patient is known to have severe COPD with CRF on home O2. She states she had a rough night because she was placed on BIPAP and the machine kept beeping, PCO2 from 04/04 noted to be 55. Serum Co2 this mrn 44, chart review showed chronic metabolic alkalosis No alteration in mentation, no resp distress She is on azithromycin-Day 07/29 for COPDE Herbert qualify for BiPAP tonight-ABG noted Per patient' daughter, she had a bIPAP at home but not compliant due to mask issues - Exam Vitals: Temp Pulse Resp BP Pulse Ox 98.1 F 85 18 123/74 96 04/06/18 06:57 04/06/18 06:57 04/06/18 06:57 04/06/18 06:57 04/06/18 06:57 Exam: VSS Gen: Sitting up in bed, elderly, not in any form of distress HEENT: Moist oral mucosa, anicteric, normal neck inspection Chest: Diminshed air entry , no rhonchi, no crackles, no wheezing heart: S1, S2only, no m/g/r Abdomen: Not tender, soft, Extremities: No pedal edema Neuro: AAOX3, no gross focal deficits Psych: Appropriate affect Skin: No rash - Assessment and Plan (1) Fracture of femoral neck, right Current Visit: Yes Status: Acute Assessment and Plan: Patient presents with acute right femoral neck fracture secondary to mechanical fall postop day 6 s/p ORIF Continue current management (2) COPD (chronic obstructive pulmonary disease) Current Visit: Yes Status: Chronic Assessment and Plan: Patient on azithromycin per pulmonology recommendations for suspected mild COPD exacerbation Continue scheduled DuoNeb's in addition to theophylline (3) Acute and chronic respiratory failure with hypoxia Current Visit: Yes Status: Acute Assessment and Plan: Patient did report of some increased shortness of breath 04/05, however O2 sats remained in low 90s on baseline O2 requirements and chest x-ray without any acute findings and ABG improved from admission; CTPA showed severe emphysema, with no infiltrates (4) Anemia Current Visit: Yes Status: Chronic Assessment and Plan: Patient with chronic anemia which is stable Hemoglobin 9.4 this morning; baseline appears to be 10.0 Continue to monitor (5) Hypercarbia Current Visit: Yes Status: Chronic Assessment and Plan: Continue BIPAp at night Patient is asymptomatic DVT Prophylaxis: EPCDs and subcutaneous heparin - Time Spent with Patient Total time spent is greater than 50% in coordination of care (as documented) at patient's floor/unit and/or counseling patient: Plan of Care Discussed with: patient Internal Medicine: Result - Labs CBC & Chem 7: 04/06/18 06:33 04/06/18 06:33 Labs: Short CBC 04/06/18 Range/Units 06:33 WBC 6.2 (4.3-11.1) K/mcL Hgb 9.4 L (11.5-15.4) g/dL Hct 29.0 L (35.3-44.9) % Plt Count 301 (140-400) K/mcL Neutrophils # 4.3 (1.6-8.9) K/mcL BMP 04/06/18 06:33 Sodium 140 Potassium 3.3 L Chloride 92 L Carbon Dioxide 44 H* BUN 19 Creatinine 0.64 Glucose 98 Calcium 9.4 - ABG Interpretation ABG results: ABG ABG pH 7.51 pH Units (7.32-7.45) H 04/06/18 08:31 ABG pCO2 52 mmHg (35-45) H 04/06/18 08:31 ABG pO2 58 mmHg (85-104) L 04/06/18 08:31 ABG O2 Saturation 92 % (95-98) L 04/06/18 08:31 PT/INR, D-dimer PT 12.0 Seconds (9.4-12.1) 03/30/18 08:43 - VTE Documentation of Mechanical Device: Venous foot pump, device Consult Discharge Plan - Plan Referrals: Annie Elliott MD [Primary Care Provider] - (Dr. Nuno appointment 04/06/2018 at 1:15 Dr. Atwood appointment 04/13/2018 at 11:15 Dr. Penn appointment 04/20/2018 at 4:30 ) (1) Fracture of femoral neck, right Qualifiers: Encounter type: initial encounter Fracture type: closed Qualified Code(s): S72.001A - Fracture of unspecified part of neck of right femur, initial encounter for closed fracture (2) COPD (chronic obstructive pulmonary disease) Qualifiers: COPD type: emphysema Emphysema type: unspecified Qualified Code(s): J43.9 - Emphysema, unspecified (4) Anemia Qualifiers: Anemia type: unspecified type Qualified Code(s): D64.9 - Anemia, unspecified
[2018-04-06] MEDS: Budesonide/Formoterol 160/4.5 1 PUFF INH IH SCH (11:21)
--- NOTE | 2018-04-06 14:17 | Physician Discharge Referral ---
ExtendedCare Referral Info Transfer To: SNF/ECF Provider in Charge: Ysabel Valle Provider in Charge after Transfer: PCP Institutional Level of Care: Skilled - Diagnosis (1) Fracture of femoral neck, right Priority: Primary Status: Acute (2) COPD (chronic obstructive pulmonary disease) Priority: Secondary Status: Chronic (3) Acute and chronic respiratory failure with hypoxia Priority: Primary Status: Acute (4) Anemia Priority: Secondary Status: Chronic (5) Hypercarbia Priority: Secondary Status: Chronic Prognosis: Fair Aware of Diagnosis: Patient, Family Aware of Prognosis: Patient, Family - Transfer Medications Home Medications: Albuterol Sulfate [Proair Hfa] 1 aerosol IH Q4H PRN 09/19/15 [History] Aspirin 81 mg PO DAILY 09/19/15 [History] Atorvastatin [Lipitor] 10 mg PO HS 09/19/15 [History] Budesonide/Formoterol 160/4.5 [Symbicort 160/4.5] 1 puff IH BIDR 09/19/15 [History] FLUoxetine HCl [Prozac] 20 mg PO DAILY 09/19/15 [History] Ipratropium/Albuterol Neb [Duoneb] 3 ml IH Q4HR PRN 09/19/15 [History] Ipratropium/Albuterol Sulfate [Combivent Respimat Inhal [place]] 4 gm IH Q4H PRN 09/19/15 [History] Montelukast [Singulair] 10 mg PO HS 09/19/15 [History] Multivitamin with Minerals [Totalday Multiple] 1 tab PO DAILY 09/19/15 [History] Nabumetone 750 mg PO BID PRN 09/19/15 [History] Omeprazole [PriLOSEC] 20 mg PO DAILY 09/19/15 [History] Oxygen 3.5 l IH CONT 09/19/15 [History] Saliva Stimulant [Biotene Moisturizing Rinse] 100 spray ORAL RINSE Q4H PRN 09/19/15 [History] Acetylcysteine [Nac] 600 mg PO BID 04/02/18 [History] hydroCHLOROthiazide [Hydrochlorothiazide] 25 mg PO DAILY 04/02/18 [History] Calcium Carbonate/Vitamin D3 [Calcium 600+D Softgel] 2 cap PO BID 04/03/18 [History] Ondansetron HCl [Zofran] 4 mg PO Q6H PRN 04/03/18 [History] Theophylline Anhydrous [Andrey-24] 200 mg PO DAILY 04/03/18 [History] Azithromycin [Zithromax] 250 mg PO Q24H tablet 04/06/18 [Rx] Cholecalciferol (D-3) [Vitamin D] 1,000 unit PO DAILY tablet 04/06/18 [Rx] Docusate [Colace] 100 mg PO BID capsule 04/06/18 [Rx] Potassium Chloride 20 meq PO DAILY tab.er.prt 04/06/18 [Rx] predniSONE [PredniSONE] 20 mg PO DAILY tablet 04/06/18 [Rx] Allergies/Adverse Reactions: Allergy/AdvReac Type Severity Reaction Status Date / Time bupropion [From Wellbutrin] Allergy Hives Verified 04/03/18 11:31 codeine AdvReac Nausea Verified 04/03/18 11:31 Opioids - Morphine Analogues AdvReac Nausea Verified 04/03/18 11:31 - Respiratory Orders Oxygen / L per min (3-4 L per minutem goal saturation 92%), Other (BIPAP at night, RR 8, IPAP 10, EPAP 5.FiO2 40%) Smoking Cessation: Smoking cessation has been advised. For more information, call the [place] Tobacco Quit Line at 0-892-UWGW-NOW. - Advance Directives Code Status: Full Code - Mobility Orders Ambulate - Rehabiliation Orders Rehab Potential: Fair Rehab Orders: Evaluation for Physical Therapy, Evaluation for Occupational Therapy - Diet Orders Cardiac CERTIFICATION: I certify that the transfer of the above named patient to an Extended Care Facility is necessary for the continuing treatment of the diagnosis listed. The above information is true and accurate reflection of patient's current condition. Confidential - Redisclosure prohibited without a patient's written consent.
[2018-04-06 16:41] VITALS: BP 112/73
--- NOTE | 2018-04-06 18:05 | Discharge Summary ---
- NOTES TO OUTPATIENT PROVIDER Notes to Outpatient Provider: Follow up with PCP and Orthopedics surgery Orders not resulted at time of discharge: Pending orders 04/07/18 04:00 ABG [Arterial Blood Gas] AM 0400 Date of Encounter: 04/07/18 Time of Encounter: 18:04 - Discharge Diagnosis (1) Fracture of femoral neck, right Priority: Primary Status: Acute Qualifiers: Encounter type: initial encounter Fracture type: closed Qualified Code(s): S72.001A - Fracture of unspecified part of neck of right femur, initial encounter for closed fracture (2) COPD (chronic obstructive pulmonary disease) Priority: Primary Status: Chronic Qualifiers: COPD type: emphysema Emphysema type: unspecified Qualified Code(s): J43.9 - Emphysema, unspecified (3) Acute and chronic respiratory failure with hypoxia Priority: Primary Status: Acute (4) Anemia Priority: Primary Status: Chronic Qualifiers: Anemia type: unspecified type Qualified Code(s): D64.9 - Anemia, unspecified (5) Hypercarbia Priority: Primary Status: Chronic Hospital course: Ms. Hall is a 72 year old female with PMH of chronic hypercapneic and hypoxic respiratory failure on home O2, home BIUPAP, HTN She was admitted following a femoral fracture due to mechanical fall Seen and examined with daughter at the bedside She is POD 6 s/p ORIF without post-op complications CTA done 04/04 showed no PE, severe emphysema. Serum Co2 this mrn 44, chart review showed chronic metabolic alkalosis No alteration in mentation, no resp distress She is on azithromycin-Day 4/5 for COPDE, recommend 2 more days of po azithromycin She is on prednisone, recommend to continue tapering over the next 4-5 days Ensure compliance with O2 and BiPAP, goal O2 saturation is 92% Follow up with PCP and Orthopedics Discharge discussed with: patient, family, nurse, social work - Time Spent with Patient Total time spent providing and/or coordinating discharge services: Less than 30 minutes - Discharge Medications Home Medications: RX: Albuterol Sulfate [Proair Hfa] 1 aerosol IH Q4H PRN 09/19/15 [History] RX: Aspirin 81 mg PO DAILY 09/19/15 [History] RX: Atorvastatin [Lipitor] 10 mg PO HS 09/19/15 [History] RX: Budesonide/Formoterol 160/4.5 [Symbicort 160/4.5] 1 puff IH BIDR 09/19/15 [History] RX: FLUoxetine HCl [Prozac] 20 mg PO DAILY 09/19/15 [History] RX: Ipratropium/Albuterol Neb [Duoneb] 3 ml IH Q4HR PRN 09/19/15 [History] RX: Ipratropium/Albuterol Sulfate [Combivent Respimat Inhal [place]] 4 gm IH Q4H PRN 09/19/15 [History] RX: Montelukast [Singulair] 10 mg PO HS 09/19/15 [History] RX: Multivitamin with Minerals [Totalday Multiple] 1 tab PO DAILY 09/19/15 [History] RX: Nabumetone 750 mg PO BID PRN 09/19/15 [History] RX: Omeprazole [PriLOSEC] 20 mg PO DAILY 09/19/15 [History] RX: Oxygen 3.5 l IH CONT 09/19/15 [History] RX: Saliva Stimulant [Biotene Moisturizing Rinse] 100 spray ORAL RINSE Q4H PRN 09/19/15 [History] RX: Acetylcysteine [Nac] 600 mg PO BID 04/02/18 [History] RX: hydroCHLOROthiazide [Hydrochlorothiazide] 25 mg PO DAILY 04/02/18 [History] RX: Calcium Carbonate/Vitamin D3 [Calcium 600+D Softgel] 2 cap PO BID 04/03/18 [History] RX: Ondansetron HCl [Zofran] 4 mg PO Q6H PRN 04/03/18 [History] RX: Theophylline Anhydrous [Andrey-24] 200 mg PO DAILY 04/03/18 [History] RX: Azithromycin [Zithromax] 250 mg PO Q24H tablet 04/06/18 [Rx] RX: Cholecalciferol (D-3) [Vitamin D] 1,000 unit PO DAILY tablet 04/06/18 [Rx] RX: Docusate [Colace] 100 mg PO BID capsule 04/06/18 [Rx] RX: Potassium Chloride 20 meq PO DAILY tab.er.prt 04/06/18 [Rx] RX: predniSONE [PredniSONE] 20 mg PO DAILY tablet 04/06/18 [Rx] Allergies/Adverse Reactions: Allergy/AdvReac Type Severity Reaction Status Date / Time bupropion [From Wellbutrin] Allergy Hives Verified 04/03/18 11:31 codeine AdvReac Nausea Verified 04/03/18 11:31 Opioids - Morphine Analogues AdvReac Nausea Verified 04/03/18 11:31 Date of admission: 03/30/18 08:27 Primary care physician: Annie Elliott MD Consults: 03/30/18 08:25 Consult to Pulmonology [CONS] Routine Consulting Provider: [facility] Reason for Consult: End stage COPD, right femoral neck fracture, pre- operative evaluation. Call Completed: Yes 03/30/18 13:26 Consult to Pastoral Services [CONS] Stat Comment: 03/30/18 17:45 Consult to Orthopedic Navigator [CONS] [CONS] Routine Consult to Family Practitioner [CONS] Routine Reason for SW Consult: post -op hip fracture RT Post Op Consult [CONS] Routine 03/31/18 11:56 Consult to Physical Therapy [CONS] Routine Comment: Evaluate, develop and implement POC Reason for Consult: evaluation for SNF Does patient have active BEDREST order?: No Is patient medically & hemodynamically stable?: Yes Patient assessed for mobility or mobilized this visit?: No 03/31/18 11:57 Consult to Occupational Therapy [CONS] Routine Comment: Evaluate, develop and implement POC Reason for Consult: Evaluation for SNF Does patient have active BEDREST order?: No Is patient medically & hemodynamically stable?: Yes Patient assessed for mobility or mobilized this visit?: No Discharging clinician: Donnell Valle Anticipated date of discharge: 04/06/18 - Constitutional Vitals: Temp Pulse Resp BP Pulse Ox 98.3 F 103 18 112/73 95 04/06/18 16:39 04/06/18 16:39 04/06/18 16:39 04/06/18 16:39 04/06/18 16:39 General appearance: Present: A&O X 3, no acute distress, answers questions appropriately Exam: VSS Gen: Sitting up in bed, elderly, not in any form of distress HEENT: Moist oral mucosa, anicteric, normal neck inspection Chest: Diminshed air entry , no rhonchi, no crackles, no wheezing heart: S1, S2only, no m/g/r Abdomen: Not tender, soft, Extremities: No pedal edema Neuro: AAOX3, no gross focal deficits Psych: Appropriate affect Skin: No rash - Patient Status Disposition: Transfer SNF Condition: Fair Functional capacity at discharge: uses cane/walker Overall status at discharge: patient is progressing back to baseline - Discharge Instructions Follow Up With: Oswald Penn MD [Partnered Physician] - 04/12/18 9:40 am (ALSO 04/20/18 @ 4:30PM ) Annie Elliott MD [Primary Care Provider] - (Dr. Nuno appointment 04/06/2018 at 1:15 Dr. Atwood appointment 04/13/2018 at 11:15 Dr. Penn appointment 04/20/2018 at 4:30 ) Additional Instructions: Discharge Instructions: Total Hip Replacement Please call [facility] ([phone]), your Primary Care Physician, or report to the Emergency Room if you have any of the following symptoms: Nausea, vomiting, fever greater that 101.5, swelling, chest pain, shortness of breath, increased pain/redness/drainage/odor for your incision site, numbness/tingling, or any other concerning symptoms. ACTIVITY:Weight-bearing as tolerated for 8 weeks with hip dislocation precautions that physical therapy taught you. You may progress as tolerated under the guidance of your physical therapist. You do not need to sleep with a pillow between your legs. You can also seep on the operative side or on your stomach. Incentive Spirometer 10 times an hour. MEDICATIONS: Upon discharge resume your home medications. Take all the medications as prescribed. Take a stool softener if taking narcotic pain medications. Stool softeners are only effective if you drink enough fluids. Drink 6-8 glass of water or fluids a day, unless this is not allowed for another health problem. Despite using stool softeners, if you haven't had a bowel movement in 3 days, please switch to a gentle laxative. Gentle laxatives are sold over the counter. You should have a bowel movement within 24 hours, if not call the office. You will be discharged from the hospital with a prescription for pain medication. You are encouraged to decrease the use of narcotic pain medication as tolerated. Should you require a refill, please call the office. [facility] prescribes narcotic pain medication for only 4-6 weeks after surgery. If you require pain medication beyond this time period, you may be referred to your Primary Care Physician or to the Pain Clinic for further evaluation. Plan ahead for refills on pain medication as many narcotics either need to be picked up at the office or mailed. It is best to call 48-72 hours in advance of needing a prescription refill so you don't run out of medication. To help control the post-operative pain, you may take NSAIDs (Aleve,Advil, Motrin, ibuprofen, naprosyn) or Tylenol as prescribed on the bottle in addition to the pain medication. ANTICOAGULATION (blood thinners): Continue your Aspirin, Lovenox or Coumadin as prescribed to help prevent a blood clot in the leg or in the lungs. As long as your incision remains dry and you tolerate the NSAIDs (Aleve, Advil, Motrin, Ibuprofen, Naprosyn), it is OK to use the NSAIDS while you are taking your anticoagulation medication. Should your incision start to drain, stop the NSAID and contact our office. Common symptoms of blood clot in the legs include: localized pain, swelling, calf tenderness, redness or discoloration of the skin. Blood clot in the lung symptoms include: shortness of breath, rapid pulse, sweating, and chest pain that worsens with deep breathing, coughing up blood, lightheadedness, feelings of anxiety. If you experience any of these symptoms notify your physician immediately, go to the emergency room, or if having trouble breathing, call 911. WOUND CARE: Leave the dressing on for 7 to 10days. You may change the dressing if it is saturated greater than 50%. Do not get the dressing wet at anytime. Wash your hands with antibacterial soap, rinse and dry prior to any wound care. If you have karen the visiting nurse or rehab facility can remove the stapes 10-14 days after surgery and place steri-strips across the wound. Leave the steri-strips in place until they fall off on their own. You may let water from the shower run on top of the steri-strips. If you do not have a visiting nurse or rehab facility, you will need to return to the office at 10-14 days for the karen to be removed. If you have itching or redness around the dressing call the office. FOLLOW-UP: Please follow up with your surgeon in the orthopedic clinic in 6 weeks from the day of surgery. If you have karen that need to be removed, you will need to come back to the office in 10-14 days from the day of surgery. - Diet and Activity Activity: as per physical therapy Diet: low salt diet - VTE Documentation of Mechanical Device: Venous foot pump, device
[2018-04-07] MEDS ORDERED: predniSONE 20 MG TABLET PO SCH (09:00)
== END 2018-04-06 19:01 | DRG 480 ==
LOC: 3NENU → SUATTDRO 08:27
PROVIDERS: ADMIT Internal Medicine; ATTEND Internal Medicine